=== PATIENT | male | born 1960 | race Caucasian/White ===

== ENCOUNTER 2018-11-11 14:49 | Emergency (ER) | payer OTHER, SELFPAY ==
[2018-11-11 14:57] VITALS: BP 113/79; PULSE 61; RESP 14; TEMP 36.8; O2SAT 98
--- NOTE | 2018-11-11 15:20 | DI.RAD_ITS ---
SYMPTOM/DIAGNOSIS: S/P CRUSH INJURY RT LITTLE FINGER RIGHT LITTLE FINGER: Three views of the right little finger were obtained. No priors for comparison No acute fracture or dislocation is present. At the distal interphalangeal joint of the right little finger there is marked joint space narrowing and periarticular spurring consistent with osteoarthritis. There does appear to be soft tissue swelling of the right little finger. IMPRESSION: No acute fracture or dislocation.
--- NOTE | 2018-11-11 15:21 | ED.GENADUL_ITS ---
Discharge Plan Disposition Patient Disposition: HOME Condition: Stable Discharge Details Chief Complaint: Orthopedic Clinical Impression: Finger laceration, Crush injury to finger Primary Care Provider: Ansley Mir V ED Provider: Sherry Crespo Home Meds and New Rx's Prescriptions: New cephalexin [Keflex] 500 mg capsule 500 mg PO Q6H 7 Days Qty: 28 RF: 0 Continued multivitamin with minerals [Multiple Vitamin-Minerals] Tablet 1 tab PO DAILY RF: 0 Discharge Instructions Instructions: Finger Laceration (ED), Crush Injury (ED) Additional Instructions: Take the antibiotics until finished. Alternate Tylenol and Motrin as needed and directed for pain. Follow-up with orthopedics tomorrow to schedule an appointment for evaluation. Return immediately to the emergency department if you develop any worsening or new concerning symptoms such as fever, increased pain, redness or swelling. Referrals: Shreyas Miranda MD [ [facility] STAFF PHYSICIAN] - Discharge Data Discharge Physician: Sherry Crespo Medical Decision Making 58-year-old male who presents with right distal fifth finger crush injury after caught on a mower deck and tanya. There is moderate distal right fifth finger edema and ecchymosis with a 2 mm laceration on medial aspect. Nail is intact. There is minimal ecchymosis below the nail but does not appear consistent with a significant subungual hematoma and does not appear appropriate for drainage at this time. No deformities noted. Neurovascularly intact. Patient took Motrin prior to arrival. Tetanus up-to-date. Right fifth finger x-ray notes significant degenerative changes but no dislocation or fracture. On the lateral view of the x-ray, it appeared that there was a questionable subluxation but this was read as negative. Will treat with antibiotics if there is a questionable bony injury in setting of laceration. Dose of Keflex given here and 2 doses for home as well as prescription. Wounds were irrigated, applied a topical antibiotic ointment and fingers but was p laced. Patient placed on orthopedic follow-up list to review x-rays in the morning. Patient was instructed to follow-up with orthopedics and to return here with any concerns. Medical Records Medical records reviewed: Yes I reviewed the patient's medical records. Imaging Data Radiologic Study: Radiologist's impression: Study performed is of the right little finger. 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 TECHNIQUE: Imaging protocol: XR Left fingers. Views: Minimum 2 views. COMPARISON: No relevant prior studies available. FINDINGS: Marked degenerative arthritis of the distal interphalangeal joint. No evidence of acute fracture. No radiopaque foreign bodies. IMPRESSION: No evidence of acute bony abnormality. HPI General Mode of arrival: ambulatory . Date/Time Provider Initiated Documentation: 11/11/18 15:18 . Limitations to Documentation: no limitations . Information obtained by: patient . HPI Narrative: Patient is a 58-year-old male who presents with right fifth finger injury after crushed on a mower deck and tanya prior to arrival. Tetanus up-to-date. Denies any other injuries. Related Data Home Medications Medication Instructions Recorded Confirmed cephalexin [Keflex] 500 mg PO Q6H 7 Days #28 cap 11/11/18 multivitamin with minerals 1 tab PO DAILY 11/11/18 11/11/18 [Multiple Vitamin-Minerals] Previous Rx's Medication Instructions Recorded cephalexin [Keflex] 500 mg PO Q6H 7 Days #28 cap 11/11/18 Allergies Allergy/AdvReac Type Severity Reaction Status Date / Time sulfur dioxide AdvReac Intermediate Unverified 11/11/18 15:01 General Stated Complaint: Orthopedic MAURISIO: 3 Review of Systems Review of Systems All systems reviewed & are unremarkable except as noted in HPI and below PFSH Social History Smoking/Tobacco Use Status: Never Drug use: Never Do you feel safe at home: Yes Do you feel safe in your relationship?: Yes Exam Const General: cooperative, healthy appearing and no acute distress HENMT Head: normal to inspection Mouth: oral mucosae normal Eyes General: appearance normal, both eyes and all related structures Neck Neck: normal visual inspection Resp Effort & Inspection: normal respiratory effort and able to speak in complete sentences Cardio Rate: regular rate Skin General skin exam: no rashes or lesions noted Neuro General: alert, awake and oriented x3 Motor: muscle tone normal throughout Extrem Other: Right 5th finger: Distal moderate edema and ecchymosis. There is a 2 mm laceration noted on the distal medial aspect. Normal range of motion at PIP joint. Limited range of motion at DIP joint which may be due to edema. No obvious deformity noted. Minimal ecchymosis noted under nail but does not appear consistent with a significant subungual hematoma. Psych Appearance: grossly normal Affect: normal affect Course Vital Signs Temperature 98.2 F 11/11/18 14:57 Pulse 61 11/11/18 14:57 Respiratory Rate 14 11/11/18 14:57 Blood Pressure 113/79 11/11/18 14:57 Pulse Oximetry 98 11/11/18 14:57 Temperature 98.2 F 11/11/18 14:57 Temperature Source Temporal Artery Scan 11/11/18 14:57 Pulse 61 11/11/18 14:57 Respiratory Rate 14 11/11/18 14:57 Respiratory Effort Non-Labored 11/11/18 14:59 Blood Pressure 113/79 11/11/18 14:57 Blood Pressure Position Sitting 11/11/18 14:57 Pulse Oximetry 98 11/11/18 14:57 Oxygen Delivery Method Room Air 11/11/18 14:57 Oxygen Flow Rate 0 11/11/18 14:57 Pain Level 2 11/11/18 14:57
--- NOTE | 2018-11-11 15:58 | DI.VRAD_ITS ---
Addendum created by Bradly Obregon MD on 11/11/2018 4:07:11 PM EDT Study performed is of the right little finger. 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 TECHNIQUE: Imaging protocol: XR Left fingers. Views: Minimum 2 views. COMPARISON: No relevant prior studies available. FINDINGS: Marked degenerative arthritis of the distal interphalangeal joint. No evidence of acute fracture. No radiopaque foreign bodies. IMPRESSION: No evidence of acute bony abnormality. Dictated and Authenticated by: Bradly Obregon MD. Ordering:ASHTYN Powell MD
[2018-11-11] MEDS: Cephalexin 500 MG CAP PO (16:20)
[2018-11-11 17:00] VITALS: BP 113/79; PULSE 61; RESP 14; O2SAT 98
[2018-11-11] MEDS: Cephalexin 500 MG CAP 1000 MG PO (17:00)
== END 2018-11-11 17:00 | disposition home or self-care (01) ==
PROVIDERS: Emergency Provider Physician Assistant; PCP Family Medicine
DX: S67.196A Crushing injury of right little finger, initial encounter (principal); S65.516A Laceration of blood vessel of right little finger, initial encounter; W28.XXXA Contact with powered lawn mower, initial encounter
CPT/HCPCS: 99283; 73140

== ENCOUNTER 2019-05-10 09:35 | Outpatient (REF) | payer OTHER, SELFPAY ==
[2019-05-10 19:46] LABS: Anion Gap 10.1 mmol/L (3-11); BUN 16 mg/dL (7-18); CO2 26.9 mmol/L (21.0-32.0); CREATININE 1.03 mg/dL (0.70-1.30); Calcium 9.4 mg/dL (8.5-10.1); Calculated LDL 166 mg/dL; Chloride 106 mmol/L (98-107); Cholesterol 255 mg/dL (<200); Glucose 97 mg/dL (74-106); HDL Cholesterol 61 mg/dL (40-60); Potassium 4.3 mmol/L (3.5-5.1); Sodium 143 mmol/L (136-145); Triglyceride 140 mg/dL (<150)
[2019-05-13 12:54] LABS: PSA, Screening 0.7 ng/mL (0.0-3.5)
== END 2019-05-10 09:55 ==
LOC: NCHCN 09:35
PROVIDERS: PCP Family Medicine; Visit Provider Family Medicine
DX: Z00.00 Encounter for general adult medical examination without abnormal findings (principal); Z13.220 Encounter for screening for lipoid disorders; Z13.228 Encounter for screening for other metabolic disorders; Z12.5 Encounter for screening for malignant neoplasm of prostate
CPT/HCPCS: 80048; 80061; 84153

== ENCOUNTER 2019-06-27 15:21 | Outpatient (REF) | payer OTHER, SELFPAY ==
--- NOTE | 2019-06-27 14:00 | SKI_PTH ---
PATIENT: Julito Yost LOC: [facility]#:[id number] AGE/SX: 59/M ROOM: RE06/27/[address]: Asnley Mir V : 1960 BED: DIS: 06/27/2019 SPEC #: [id number] RECD: 06/28/19 12:16 STATUS: ADRIANA JIMENEZ #: [id number] JAMES: 06/27/19 14:[address]: Ansley Mir V DEPT: Surgical Specimen RECD BY: Tram Keyes Tissues: 1 - SKIN BIOPSY(SHAVE/PUNCH) Procedures: SKIN LEVEL 4 Comments: [id number]
== END 2019-06-27 15:41 ==
LOC: NCHCN 15:21
PROVIDERS: PCP Family Medicine; Visit Provider Family Medicine
DX: L30.8 Other specified dermatitis (principal)
CPT/HCPCS: 88305

== ENCOUNTER 2019-10-21 00:29 | Outpatient (CLI) | payer OTHER, SELFPAY ==
--- NOTE | 2019-10-21 10:30 | DI.NM_ITS ---
APPROVED REPORT Exam: Exercise Treadmill Patient Location: Out-Patient Room/Bed: Stress Nurse: Marianna Tesfaye RN BMI: 26.63 Baseline Rhythm: Sinus Bradycardia Indications: Patient reports for the past couple of weeks he has been experiencing upper mid chest/th roat ???tightness??? and ???breathlessness??? (choking feeling) ???especially on long runs???. Zabrina adan is an avid runner. Medical History Medical History: GERD Cardiac Medications: Rosuvastatin Allergies: Sulfa Medications Cardiac Risk Factors: Hyperlipidemia Previous Cardiac Procedures: None Pretest Chest Pain Characteristics: None Exercise History: Physically active Physical Disabilities: None Lung Sounds: Clear to auscultation Heart Sounds: Regular Stress Test Details Test: Exercise stress testing was performed using a Jayjay protocol. Nuclear Acquisition: Rest Tc-99m/Stress Tc-99m 1 day Rest Isotope: Tc-99m Sestamibi. Dose: 12.0 Date: 10/21/2019 Injection Time: 0920 Stress Isotope: Tc-99m Sestamibi. Dose: 37.0 Date: 10/21/2019 Injection Time: 1135 HR Resting HR Supine: 58 bpm Max Heart Rate (APMHR): 162 bpm Resting HR Standin bpm Target HR (85% APMHR): 137 bpm Max HR Achieved: 182 bpm % of APMHR: 112 HR response to stress: Normal HR response to stress BP Resting BP Supine: 118/62 mmHg Resting BP Standin/60 mmHg Max BP: 148/66 mmHg BP response to stress: Normal blood pressure response to stress. ECG Resting ECG: Sinus Bradycardia Stress ECG: Sinus Tachycardia ST Change: Normal Arrhythmia: None Recovery ECG: Sinus Rhythm Recovery ST Change: Normal Recovery Arrhythmia: None Clinical Reason for Termination: Fatigue Stress Symptoms: None Exercise duration: 15 min0 sec Highest Stage Reached: Stage 6: 5.5 mph at 20% grade. Exercise capacity: 14.87 METs Functional Capacity: Above average capacity Stress ECG Conclusion 1. Patient exercised for 14 minutes (15 minutes). The patient reached 112% of maximal predicted hear t rate. Rate-pressure product was 24,000. 2. Patient no symptoms suggestive of ischemia. 3. There was no evidence of ischemia on the ECG portion of the exam. Stress Test Summary STAGE Time (mins) Speed (mph) Grade (%) HR BP SYMPTOMS METS Supine 58 118/62 Standing 59 114/60 1 3 1.7 10 105 120/60 4.6 2 6 2.5 12 120 122/58 7 3 9 3.4 14 140 134/60 10.2 1 min recovery 162 148/66 3 min recovery 110 136/62 6 min recovery 102 128/60 9 min recovery 101 122/64 Note: Unable to take blood pressure at stage 4 due to treadmill noise. MPI Conclusion The ejection fraction was 63% with stress. There were no wall motion abnormalities. There is no evidence of ischemia on the imaging portion of the exam. This represents a normal SPECT stress test. Radiologist Interpretation Radiologist Interpretation by: Brandyn Ashby MD Interpretation Date/Time: 10/22/2019 08:34:12
== END 2019-10-21 00:49 ==
PROVIDERS: PCP Family Medicine; Visit Provider Family Medicine
DX: R07.89 Other chest pain (principal); E78.5 Hyperlipidemia, unspecified; K21.9 Gastro-esophageal reflux disease without esophagitis
CPT/HCPCS: 78452; 93017

== ENCOUNTER 2021-06-07 17:01 | Emergency (ER) | payer OTHER, SELFPAY ==
[2021-06-07] VITALS (20 sets, daily range): BP systolic 114–156; BP diastolic 77–89; PULSE 49–75; RESP 11–21; TEMP 35.4; O2SAT 92–100
--- NOTE | 2021-06-07 17:00 | RT.EKG_ITS ---
APPROVED REPORT Exam: Resting ECG Reason for Exam: CHEST PAIN Patient Location: E HR:64 bpm ECG Measurements Heart Rate 64 AXIS TX 171 P 63 QRSd 89 QRS 22 QT 395 T 43 QTc 409 Conclusion Sinus rhythm...normal P axis, V-rate 60- 99 Probable left atrial enlargement...P >50mS, <-0.10mV V1. Sinus. No STEMI. I have reviewed and interpreted ECG and agree with software generated interpretation.
--- NOTE | 2021-06-07 17:00 | DI.RAD_ITS ---
Exam(s) XR CHEST 2V PA LATERAL EXAM: XR CHEST 2V PA LATERAL CLINICAL HISTORY: chest pain, r/o acute disease TECHNIQUE: 2D digital imaging was performed of the chest. Two images were obtained. PA and lateral views were obtained. COMPARISON: No exams were available for comparison FINDINGS: MEDIASTINUM: Normal. HEART: Normal. PULMONARY VASCULATURE: Normal. LUNGS: Left infrahilar opacity. PLEURAL SPACE: No pleural effusion or pneumothorax. BONE:Within normal limits for the patient's age. OTHER FINDINGS:Normal. IMPRESSION: Left infrahilar opacities suspicious for pneumonia. Please correlate clinically. DATA REPOSITORY: RADIATION DOSE DELIVERED:
--- NOTE | 2021-06-07 17:13 | ED.GENADUL_ITS ---
Discharge Plan Disposition Patient Disposition: HOME Condition: Stable Discharge Details Clinical Impression: Chest pain, Palpitations Primary Care Provider: Ansley Mir V ED Provider: Sherry Crespo Home Meds and New Rx's Prescriptions: New sucralfate [Carafate] 1 gram tablet 1 gm PO QACHS Qty: 14 RF: 0 Continued Multiple Vitamin-Minerals Tablet 1 tab PO DAILY RF: 0 rosuvastatin 20 mg tablet 20 mg PO DAILY RF: 0 turmeric 400 mg Capsule 400 mg PO DAILY RF: 0 Discharge Instructions Instructions: Chest Pain (ED), Heart Palpitations (ED) Additional Instructions: Your lab work, EKGs and imaging today is reassuring and shows no evidence of acute concerning findings. Drink plenty of fluids and get plenty of rest. Continue your Nexium as directed. A prescription for Carafate has been sent electronically to your pharmacy. Call your primary care doctor today to schedule a follow-up appointment for reevaluation and for referral for outpatient stress test or registered nurse cardiac telemetry if your symptoms persist or worsen. Return immediately to the emergency department if you develop any worsening or new concerning symptoms. Discharge Data Discharge Date/Time-TO BE ENTERED AT DEPARTURE: 06/07/21 20:25 Discharge Physician: Sherry Crespo Medical Decision Making 61-year-old male with a history of GERD and hyperlipidemia presents for 2 episodes of substernal chest pressure today. EKG notes a rate of 64, sinus, no STEMI nondiagnostic. Blood pressure hypertensive but remainder vitals within normal limits. Pain is improving during my evaluation. Does not appear significantly suspicious for ACS, but considering age and risk factors, will obtain cardiac work-up, chest x-ray. History and presentation does not appear with PE or dissection. Patient would like to try GI cocktail, Pepcid and Carafate. Labs and imaging reviewed. Normal white blood cell count. Normal electrolytes. Troponin negative. Lipase within normal limits. CXR notes: IMPRESSION: Acute interstitial and airspace disease in the left lung base with associated acute interstitial disease in the right lung base. Developing atypical pneumonia to be entertained in the appropriate clinical setting. Results d/w pt -- he denies any fever or cough so presentation not c/w pneumonia. Patient states his chest pain is completely resolved. He feels that his symptoms are most likely due to the food he ate today. Pt agreeable to stay for a repeat troponin but does not want to wait for a 3 hour troponin. He is willing to stay for a 2 hour repeat troponin. Repeat troponin negative. Repeat EKG unchanged. Bedside echo done and notes normal dynamic wall motion and no pericardial effusion. Pt is requesting to go home. Heart score 2. Advised to f/u with pcp for re- evaluation and for referral for outpatient stress test or registered nurse cardiac telemetry if symptoms persist or worsen. Prescription for Carafate sent electronically to his pharmacy. Usual and customary return precautions given prior to discharge. Medical Records Medical records reviewed: Yes I reviewed the patient's medical records. Imaging Data Radiologic Study: Radiologist's impression: XR Chest Exam date and time: 06/07/2021 5:13 PM Age: 61 years old Clinical indication: Other: Not specified; Patient HX: Chest pain; Additional info: R/O acute disease TECHNIQUE: Imaging protocol: XR of the chest. Views: 2 views. COMPARISON: No relevant prior studies available. FINDINGS: Airway: Patent Lungs: Subtle bilateral infrahilar ground-glass and streak like opacifications. Patchy airspace opacities in the left lung base. Remainder of the lungs are clear. Pleural spaces: Unremarkable. No pleural effusion. No pneumothorax. Heart/Mediastinum: Unremarkable. No cardiomegaly. Bones/joints: No acute skeletal abnormality or aggressive osseous lesion. IMPRESSION: Acute interstitial and airspace disease in the left lung base with associated acute interstitial disease in the right lung base. Developing atypical pneumonia to be entertained in the appropriate clinical setting. Lab Data Lab results reviewed: Yes I reviewed the patient's lab results. Labs: Laboratory Tests Range/Units 06/07/21 06/07/21 06/07/21 17:00 17:00 18:55 WBC (4.4-10.8) 10^3/uL 6.38 RBC (4.36-5.78) 10^6/uL 4.93 Hgb (13.5-17.5) g/dL 14.0 Hct (40.0-50.0) % 44.3 MCV (80-95) fL 89.9 MCH (27.0-33.0) pg 28.4 MCHC (32.0-36.0) % 31.6 L RDW (11.8-14.1) % 13.2 Plt Count (130-400) 10^3/uL 227 MPV (8.0-11.0) fL 10.2 Immature Gran % 0.5 Neutrophils % 42.1 Lymphocytes % 41.4 Monocytes % 10.8 Eosinophils % 4.4 Basophils % 0.8 Nucleated RBC % % 0 Absolute Neutrophils (1.2-6.7) 10^3/uL 2.69 Absolute Lymphocytes (1.2-3.4) 10^3/uL 2.64 Absolute Monocytes (0.1-0.8) 10^3/uL 0.69 Absolute Eosinophils (0.0-0.7) 10^3/uL 0.28 Absolute Basophils (0.0-0.2) 10^3/uL 0.05 Sodium (136-145) mmol/L 139 Potassium (3.5-5.1) mmol/L 3.7 Chloride (98-107) mmol/L 102 Carbon Dioxide (21.0-32.0) mmol/L 28.8 Anion Gap (3-11) mmol/L 8.2 BUN (7-18) mg/dL 17 Creatinine (0.70-1.30) mg/dL 1.1 Estimated GFR/1.73 m2 (mL/min/1.73m2) >= 60.00 Glucose (74-106) mg/dL 110 H Calcium (8.5-10.1) mg/dL 9.1 Magnesium (1.8-2.4) mg/dL 2.2 Total Bilirubin (0.2-1.0) mg/dL 0.3 AST (15-37) U/L 17 ALT (16-63) U/L 33 Alkaline Phosphatase (46-116) U/L 90 Troponin I (<or=60) ng/L < 50 < 50 Total Protein (6.4-8.2) g/dL 7.5 Albumin (3.4-5.0) g/dL 4.2 Lipase (73-393) U/L Range/Units 06/07/21 18:55 WBC (4.4-10.8) 10^3/uL RBC (4.36-5.78) 10^6/uL Hgb (13.5-17.5) g/dL Hct (40.0-50.0) % MCV (80-95) fL MCH (27.0-33.0) pg MCHC (32.0-36.0) % RDW (11.8-14.1) % Plt Count (130-400) 10^3/uL MPV (8.0-11.0) fL Immature Gran % Neutrophils % Lymphocytes % Monocytes % Eosinophils % Basophils % Nucleated RBC % % Absolute Neutrophils (1.2-6.7) 10^3/uL Absolute Lymphocytes (1.2-3.4) 10^3/uL Absolute Monocytes (0.1-0.8) 10^3/uL Absolute Eosinophils (0.0-0.7) 10^3/uL Absolute Basophils (0.0-0.2) 10^3/uL Sodium (136-145) mmol/L Potassium (3.5-5.1) mmol/L Chloride (98-107) mmol/L Carbon Dioxide (21.0-32.0) mmol/L Anion Gap (3-11) mmol/L BUN (7-18) mg/dL Creatinine (0.70-1.30) mg/dL Estimated GFR/1.73 m2 (mL/min/1.73m2) Glucose (74-106) mg/dL Calcium (8.5-10.1) mg/dL Magnesium (1.8-2.4) mg/dL Total Bilirubin (0.2-1.0) mg/dL AST (15-37) U/L ALT (16-63) U/L Alkaline Phosphatase (46-116) U/L Troponin I (<or=60) ng/L Total Protein (6.4-8.2) g/dL Albumin (3.4-5.0) g/dL Lipase (73-393) U/L 131 ECG Data Attestation: I personally reviewed and interpreted this ECG (s) as follows: Interpretation: #1 -- Rate of 64, sinus, no acute ST elevation or depression. ME 171. QTc 409. #2 -- Rate of 50, sinus, no acute ST elevation or depression. ME 176. QTc 385. HPI General Mode of arrival: ambulatory . Date/Time Provider Initiated Documentation: 06/07/21 17:11 . Limitations to Documentation: no limitations . Information obtained by: patient . HPI Narrative: Patient is a 61-year-old male with a history of GERD and hyperlipidemia who presents with intermittent chest pain today. 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 He states it lasted a minute and then resolved. 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 He states the pain is occasionally radiating behind his ears. He states the pain was worse earlier and is currently 1/10. He admits to occasional shortness of breath and dizziness but denies any nausea or vomiting. He denies any recent injury or illness. He has not taken any medication for symptoms today. He thought his symptoms were due to GERD because he ate cabbage rolls today but wanted to be checked out as he feels more water brash and burning with his GERD as opposed to chest pressure. He does also admit to recent stress. He initially stated that the pain was radiating to his neck but he states this is now improved. Related Data Home Medications Medication Instructions Recorded Confirmed Multiple Vitamin-Minerals 1 tab PO DAILY 11/11/18 06/07/21 rosuvastatin 20 mg PO DAILY 06/07/21 06/07/21 sucralfate [Carafate] 1 gm PO QACHS #14 tab 06/07/21 turmeric 400 mg PO DAILY 06/07/21 06/07/21 Previous Rx's Medication Instructions Recorded sucralfate [Carafate] 1 gm PO QACHS #14 tab 06/07/21 Allergies Allergy/AdvReac Type Severity Reaction Status Date / Time Sulfa (Sulfonamide Allergy Hives Unverified 06/07/21 17:07 Antibiotics) sulfur dioxide AdvReac Intermediate Unverified 11/11/18 15:01 General Stated Complaint: Chest Pain MAURISIO: 2 Review of Systems All systems reviewed & are unremarkable except as noted in HPI and below Constitutional Constitutional: Reports as per HPI, Denies chills and Denies fever(s) Eyes Eyes: Denies blurry vision ENT Ears, Nose, Mouth, and Throat: Denies dizziness, Denies sore throat and Denies throat swelling Cardiovascular Cardiovascular: Reports chest pain, Reports palpitations and Denies dyspnea Respiratory Respiratory: Denies cough and Denies dyspnea Gastrointestinal Gastrointestinal: Denies abdominal pain, Denies diarrhea and Denies vomiting Genitourinary Genitourinary: Denies hematuria and Denies dysuria Musculoskeletal Musculoskeletal: Denies back pain and Denies numbness Integumentary/Breasts Skin/Breast: Denies lesions and Denies rash Neurologic Neurologic: Denies dizziness, Denies localized weakness and Denies numbness Endocrine Endocrine: Reports palpitations Allergic/Immunologic Allergic/Immunologic: Denies throat swelling PFSH All Active Problems (Updated 06/07/21 @ 20:13 by Sherry Crespo DO) Chest pain (Acute) Palpitations (Acute) Encounter for screening for other viral diseases (Acute) Medical History (Updated 06/07/21 @ 20:13 by Sherry Crespo DO) GERD (gastroesophageal reflux disease) Hx of hyperlipidemia Surgical History (Updated 06/07/21 @ 17:14 by Sherry Crespo DO) History of hernia repair History of tonsillectomy Social History Smoking/Tobacco Use Status: Never Smoking risk assessment performed?: Yes Drug use: Never Do you feel safe at home: Yes Do you feel safe in your relationship?: Yes Exam Const General: cooperative, healthy appearing and no acute distress HENMT Head: normal to inspection Face and sinus: normal facial exam Eyes General: appearance normal, both eyes and all related structures EOM: EOM intact bilaterally Neck Neck: normal visual inspection and No submandibular swelling Lymphatic: no lymphadenopathy noted Chest Chest: normal inspection of the chest and no tenderness Resp Effort & Inspection: normal respiratory effort and able to speak in complete sentences Auscultation: clear to auscultation bilaterally Cardio Rate: regular rate Rhythm: regular rhythm GI Inspection: normal to inspection Palpation: soft, not firm, not rigid and nontender Auscultation: normal bowel sounds Skin General skin exam: no rashes or lesions noted Neuro General: patient alert, patient awake and patient oriented x3 Cognition: normal cognition Speech: speech normal Motor: muscle tone normal throughout Sensory Exam: no sensory deficits noted Extrem General: normal to inspection, full ROM, capillary refill normal, no calf tenderness bilaterally and no edema Psych Appearance: grossly normal Mental Status: mental status grossly normal Speech and Movement: speech and movement normal Affect: normal affect Course Vital Signs Vital signs: Vital Signs Temperature 95.7 F L 06/07/21 17:03 Pulse 70 06/07/21 17:03 Respiratory Rate 11 L 06/07/21 17:03 Blood Pressure 156/81 H 06/07/21 17:03 Pulse Oximetry 99 06/07/21 17:03 Temperature 95.7 F L 06/07/21 17:03 Pulse 70 06/07/21 17:03 Respiratory Rate 11 L 06/07/21 17:03 Blood Pressure 156/81 H 06/07/21 17:03 Blood Pressure Position Sitting 06/07/21 17:03 Pulse Oximetry 99 06/07/21 17:03 Oxygen Delivery Method Room Air 06/07/21 17:03 Oxygen Flow Rate 0 06/07/21 17:03 Pain Level 4 06/07/21 17:03
[2021-06-07 17:21] LABS: Abs Immature Grans 0.03 10^3/uL (0.0-0.06); Absolute Basophil Count 0.05 10^3/uL (0.0-0.2); Absolute Eosinophil Count 0.28 10^3/uL (0.0-0.7); Absolute Lymphocyte Count 2.64 10^3/uL (1.2-3.4); Absolute Monocyte Count 0.69 10^3/uL (0.1-0.8); Absolute Neutrophil Count 2.69 10^3/uL (1.2-6.7); Basophils % 0.8; Eosinophils % 4.4; HCT 44.3 % (40.0-50.0); Immature Grans % 0.5; Lymphocytes % 41.4; MCH 28.4 pg (27.0-33.0); MCHC 31.6 % (32.0-36.0); MCV 89.9 fL (80-95); MPV 10.2 fL (8.0-11.0); Monocytes % 10.8; Neutrophils % 42.1; Nucleated RBC 0 %; Platelet Count 227 10^3/uL (130-400); RBC 4.93 10^6/uL (4.36-5.78); RDW 13.2 % (11.8-14.1); RDW-SD 43.8 fL; WBC 6.38 10^3/uL (4.4-10.8)
[2021-06-07] MEDS: Sucralfate 1 GM TAB PO (17:23)
[2021-06-07] MEDS: Normal Saline 500 ML IV (17:27)
[2021-06-07] MEDS: FAMOTIDINE 20 MG/50 ML BAG 200 MG IVPB (17:27)
[2021-06-07 17:37] LABS: ALT 33 U/L (16-63); AST 17 U/L (15-37); Albumin 4.2 g/dL (3.4-5.0); Alkaline Phosphatase 90 U/L (46-116); Anion Gap 8.2 mmol/L (3-11); BUN 17 mg/dL (7-18); Bilirubin, Total 0.3 mg/dL (0.2-1.0); CO2 28.8 mmol/L (21.0-32.0); CREATININE 1.1 mg/dL (0.70-1.30); Calcium 9.1 mg/dL (8.5-10.1); Chloride 102 mmol/L (98-107); Glucose 110 mg/dL (74-106); Magnesium 2.2 mg/dL (1.8-2.4); Potassium 3.7 mmol/L (3.5-5.1); Sodium 139 mmol/L (136-145); Total Protein 7.5 g/dL (6.4-8.2); Troponin I < 50 ng/L (<or=60)
--- NOTE | 2021-06-07 17:45 | RT.EKG_ITS ---
APPROVED REPORT Exam: Resting ECG Reason for Exam: chest pain Patient Location: E HR:50 bpm ECG Measurements Heart Rate 50 AXIS TX 176 P 62 QRSd 91 QRS 30 QT 423 T 39 QTc 385 Conclusion Sinus bradycardia...rate< 60 Low voltage, extremity leads...all extremity leads <0.5mV. Sinus. No STEMI. I have reviewed and interpreted ECG and agree with software generated interpretation.
--- NOTE | 2021-06-07 18:15 | DI.VRAD_ITS ---
PROCEDURE INFORMATION: Exam: XR Chest Exam date and time: 06/07/2021 5:13 PM Age: 61 years old Clinical indication: Other: Not specified; Patient HX: Chest pain; Additional info: R/O acute disease TECHNIQUE: Imaging protocol: XR of the chest. Views: 2 views. COMPARISON: No relevant prior studies available. FINDINGS: Airway: Patent Lungs: Subtle bilateral infrahilar ground-glass and streak like opacifications. Patchy airspace opacities in the left lung base. Remainder of the lungs are clear. Pleural spaces: Unremarkable. No pleural effusion. No pneumothorax. Heart/Mediastinum: Unremarkable. No cardiomegaly. Bones/joints: No acute skeletal abnormality or aggressive osseous lesion. IMPRESSION: Acute interstitial and airspace disease in the left lung base with associated acute interstitial disease in the right lung base. Developing atypical pneumonia to be entertained in the appropriate clinical setting. Dictated and Authenticated by: Nixon Garg MD. Ordering:ASHTYN Powell MD
[2021-06-07 19:17] LABS: Troponin I < 50 ng/L (<or=60)
[2021-06-07 20:47] LABS: Lipase 131 U/L (73-393)
== END 2021-06-07 20:25 | disposition home or self-care (01) ==
LOC: ER 20:26
PROVIDERS: Emergency Provider Physician Assistant; PCP Family Medicine
DX: R07.9 Chest pain, unspecified (principal); R00.2 Palpitations; R07.89 Other chest pain; I10 Essential (primary) hypertension
CPT/HCPCS: 36415; 80053; 83690; 93005; 96361; 96374; 99284; 71046; 83735; 84484; 85025; 93010

== ENCOUNTER 2021-07-22 12:55 | Outpatient (CLI) | payer OTHER, SELFPAY ==
[2021-07-22 09:53] LABS: Calculated LDL 98 mg/dL (<100); Cholesterol 184 mg/dL (<200); HDL Cholesterol 61 mg/dL (40-60); TSH (W/Ref FT4) 1.58 uIU/mL (0.36-3.74); Triglyceride 126 mg/dL (<150)
== END 2021-07-22 12:56 | disposition home or self-care (01) ==
PROVIDERS: PCP Family Medicine; Visit Provider Family Medicine
DX: R00.2 Palpitations (principal); R07.89 Other chest pain
CPT/HCPCS: 36415; 80061; 84443

== ENCOUNTER 2022-04-02 16:54 | Emergency (ER) | payer OTHER, SELFPAY ==
[2022-04-02 17:02] VITALS: BP 127/76; PULSE 70; RESP 17; TEMP 36.9; O2SAT 98
--- NOTE | 2022-04-02 17:14 | ED.GENADUL_ITS ---
Discharge Plan Disposition Patient Disposition: HOME Condition: Stable Discharge Details Clinical Impression: Abrasion, Puncture wound Primary Care Provider: Ansley Mir V ED Provider: Florentino James Home Meds and New Rx's Prescriptions: New cephalexin 500 mg capsule 500 mg PO QID 5 Days Qty: 20 0RF No Action Multiple Vitamin-Minerals Tablet 1 tab PO DAILY rosuvastatin 20 mg tablet 20 mg PO DAILY turmeric 400 mg Capsule 400 mg PO DAILY sucralfate [Carafate] 1 gram tablet 1 gm PO QACHS Qty: 14 0RF Discharge Instructions Instructions: Puncture Wound (ED), Abrasion (ED) Additional Instructions: Please return for any signs of infection such as warmth redness purulent drainage fevers chills or other abnormal symptoms. Medical Decision Making 61-year-old male presents after sustaining superficial abrasion to right popliteal fossa from metal liliana wire, hemostatic, patient cleaned wound extensively before arrival, forage motion ambulatory without assistance, no active bleeding, no foreign bodies appreciated; no evidence of active infection. Hemodynamically stable. Will boost tetanus vaccine. We will give prescription to hold at home in case patient develops any signs of infection. Home care instructions and return precautions given. HPI General Date/Time Provider Initiated Documentation: 04/02/22 16:58 . HPI Narrative: 61-year-old male presents after sustaining superficial abrasion and puncture w ound to right lower extremity lateral aspect of popliteal fossa while in the ar[place] accidentally got entangled in an old liliana wire. Patient cleaned wound extensively. Hemostatic. Unknown when last tetanus shot was given. Related Data Home Medications Medication Instructions Recorded Confirmed multivitamin with minerals 1 tab PO DAILY 11/11/18 06/07/21 (Multiple Vitamin-Minerals tablet) rosuvastatin 20 mg tablet 20 mg PO DAILY 06/07/21 06/07/21 sucralfate 1 gram tablet (Carafate) 1 gm PO QACHS #14 tabs 06/07/21 turmeric 400 mg capsule 400 mg PO DAILY 06/07/21 06/07/21 cephalexin 500 mg capsule 500 mg PO QID 5 days #20 caps 04/02/22 Previous Rx's Medication Instructions Recorded sucralfate 1 gram tablet (Carafate) 1 gm PO QACHS #14 tabs 06/07/21 cephalexin 500 mg capsule 500 mg PO QID 5 days #20 caps 04/02/22 Allergies Allergy/AdvReac Type Severity Reaction Status Date / Time Sulfa (Sulfonamide Allergy Hives Unverified 06/07/21 17:07 Antibiotics) sulfur dioxide AdvReac Intermediate Unverified 11/11/18 15:01 General Stated Complaint: Laceration MAURISIO: 4 Review of Systems Narrative: Review of Systems Constitutional: negative Eyes: negative ENT: negative Cardiovascular: negative Respiratory: negative Gastrointestinal: negative : negative Musculoskeletal: negative Skin: Abrasion, puncture wound Neurologic: negative Psych: negative PFSH All Active Problems (Updated 04/02/22 @ 17:21 by Florentino James MD) Abrasion (Acute) Puncture wound (Acute) Encounter for screening for other viral diseases (Acute) Medical History (Updated 04/02/22 @ 17:21 by Florentino James MD) GERD (gastroesophageal reflux disease) Hx of hyperlipidemia Surgical History (Updated 06/07/21 @ 17:14 by Sherry Crespo DO) History of hernia repair History of tonsillectomy Social History Smoking/Tobacco Use Status: Never Smoking risk assessment performed?: Yes Drug use: Never Do you feel safe at home: Yes Do you feel safe in your relationship?: Yes Exam Narrative Exam Narrative: Physical Examination General: alert, awake, cooperative, resting comfortably, no acute distress HEENT: normocephalic, atraumatic; PERRL, EOM intact, conjunctiva normal Neck: supple, trachea midline; full ROM Skin:6 cm superficial abrasion with 2 punctate superficial, puncture wounds to the lateral aspect of right popliteal fossa hemostatic no foreign body no surrounding induration or erythema Neuro: AAOx3, normal speech, moving all extremities; ambulatory without assistance Extremities: See skin exam; full range of motion, warm well perfused extremity, no active bleeding or foreign bodies appreciated Course Vital Signs Vital signs: Vital Signs Temperature 36.9 C 04/02/22 17:02 Pulse 70 04/02/22 17:02 Respiratory Rate 17 04/02/22 17:02 Blood Pressure 127/76 04/02/22 17:02 Pulse Oximetry 98 04/02/22 17:02 Temperature 36.9 C 04/02/22 17:02 Temperature Source Temporal Artery Scan 04/02/22 17:02 Pulse 70 04/02/22 17:02 Respiratory Rate 17 04/02/22 17:02 Blood Pressure 127/76 10/29/22 17:02 Blood Pressure Position Sitting 04/02/22 17:02 Pulse Oximetry 98 04/02/22 17:02 Oxygen Delivery Method Room Air 04/02/22 17:02 Oxygen Flow Rate 0 04/02/22 17:02 Pain Level 0 04/02/22 17:02
== END 2022-04-02 17:26 | disposition home or self-care (01) ==
PROVIDERS: Emergency Provider Emergency Medicine; PCP Family Medicine
DX: S81.831A Puncture wound without foreign body, right lower leg, initial encounter (principal); W26.8XXA Contact with other sharp object(s), not elsewhere classified, initial encounter
CPT/HCPCS: 90471; 99284; 99283

== ENCOUNTER 2022-06-04 08:11 | Outpatient (REF) | payer OTHER, SELFPAY ==
[2022-06-04 09:13] LABS: HCT 44.7 % (40.0-50.0); HGB 14.4 g/dL (13.5-17.5); MCH 28.2 pg (27.0-33.0); MCHC 32.2 % (32.0-36.0); MCV 88 fL (80-95); MPV 10.6 fL (8.0-11.0); Platelet Count 251 10^3/uL (130-400); RDW 13.6 % (11.8-14.1); RDW-SD 43.9 fL; WBC 5.56 10^3/uL (4.4-10.8)
[2022-06-04 09:24] LABS: ALT 49 U/L (16-63); AST 30 U/L (15-37); Albumin 4.1 g/dL (3.4-5.0); Alkaline Phosphatase 91 U/L (46-116); Anion Gap 9.4 mmol/L (3-11); BUN 14 mg/dL (7-18); Bilirubin, Total 0.4 mg/dL (0.2-1.0); CO2 27.6 mmol/L (21.0-32.0); CREATININE 1.2 mg/dL (0.70-1.30); Calcium 9.2 mg/dL (8.5-10.1); Calculated LDL 119 mg/dL (<100); Chloride 102 mmol/L (98-107); Cholesterol 224 mg/dL (<200); Glucose 106 mg/dL (74-106); HDL Cholesterol 66 mg/dL (40-60); Potassium 4.5 mmol/L (3.5-5.1); Sodium 139 mmol/L (136-145); Total Protein 7.3 g/dL (6.4-8.2); Triglyceride 197 mg/dL (<150)
[2022-06-06 17:37] LABS: PSA, Screening 0.5 ng/mL (<=4.5)
[2022-06-09 00:55] LABS: Testosterone, Total 515 ng/dL (240-950)
== END 2022-06-04 08:12 | disposition home or self-care (01) ==
LOC: LBO 08:11
PROVIDERS: Nurse Practitioner Family; PCP Family Medicine; Visit Provider Family Medicine
DX: R53.83 Other fatigue (principal); E78.00 Pure hypercholesterolemia, unspecified; Z13.1 Encounter for screening for diabetes mellitus; Z12.5 Encounter for screening for malignant neoplasm of prostate
CPT/HCPCS: 36415; 80053; 80061; 84153; 84403; 85027; 83036

== ENCOUNTER 2023-02-16 14:54 | Outpatient (CLI) | payer OTHER, SELFPAY ==
[2023-02-17 09:49] LABS: Lyme Ab w Rflx to Lyme Confirm Negative (Negative)
[2023-02-18 23:22] LABS: Anaplasma phagocytophilum Negative (Negative); B. miyamotoi PCR Negative (Negative); Babesia divergens/MO-1 Negative (Negative); Babesia duncani Negative (Negative); Babesia microti Negative (Negative); Ehrlichia chaffeensis Negative (Negative); Ehrlichia ewingii/canis Negative (Negative); Ehrlichia muris eauclairensis Negative (Negative)
== END 2023-02-16 14:55 | disposition home or self-care (01) ==
LOC: LBO 14:55
PROVIDERS: PCP Family Medicine; Visit Provider Nurse Practitioner Family
DX: R53.83 Other fatigue (principal); R50.9 Fever, unspecified
CPT/HCPCS: 36415; 87798; 86618

== ENCOUNTER 2023-02-17 13:48 | Outpatient (REF) | payer OTHER, SELFPAY ==
[2023-02-17 16:59] LABS: C Diff PCR Negative (Negative)
== END 2023-02-17 13:49 | disposition home or self-care (01) ==
LOC: LBN 13:48
PROVIDERS: PCP Family Medicine; Visit Provider Nurse Practitioner Family
DX: R19.7 Diarrhea, unspecified (principal)
CPT/HCPCS: 87493

== ENCOUNTER 2023-05-25 14:03 | Outpatient (REF) | payer OTHER, SELFPAY ==
[2023-05-25 16:05] LABS: ALT 36 U/L (16-63); AST 20 U/L (15-37); Alkaline Phosphatase 86 U/L (46-116); Anion Gap 8.6 mmol/L (3-11); BUN 16 mg/dL (7-18); Bilirubin, Total 0.4 mg/dL (0.2-1.0); CO2 27.4 mmol/L (21.0-32.0); CREATININE 1.3 mg/dL (0.70-1.30); Calcium 9.2 mg/dL (8.5-10.1); Calculated LDL 80 mg/dL (<100); Chloride 104 mmol/L (98-107); Cholesterol 174 mg/dL (<200); Glucose 100 mg/dL (74-106); HDL Cholesterol 67 mg/dL (40-60); Potassium 4.7 mmol/L (3.5-5.1); Sodium 140 mmol/L (136-145); Total Protein 6.7 g/dL (6.4-8.2); Triglyceride 139 mg/dL (<150)
[2023-05-25 16:08] LABS: Hemoglobin A1C 5.6 % (<5.7)
[2023-05-25 21:52] LABS: PSA, Screening 0.6 ng/mL (<=4.5)
== END 2023-05-25 14:04 | disposition home or self-care (01) ==
LOC: NCHCN 14:03
PROVIDERS: PCP Family Medicine; Visit Provider Family Medicine
DX: Z00.00 Encounter for general adult medical examination without abnormal findings (principal); Z13.220 Encounter for screening for lipoid disorders; Z13.1 Encounter for screening for diabetes mellitus; Z12.5 Encounter for screening for malignant neoplasm of prostate
CPT/HCPCS: 80053; 80061; 84153; 83036

== ENCOUNTER 2024-06-20 13:43 | Outpatient (REF) | payer BC, SELFPAY ==
--- OUTSIDE RECORDS SUMMARY | 2024-06-20 13:57 | XMS_ITS | Data Portability ---
Author Organization [place] - [facility] Address [address] [place] [address] Care Team Providers Care Hot Mill Roller Name Role Phone COBY ENRIQUEZ Primary Care Provider [phone] J LUIS BINGHAM Sleep Medicine [facility] Dentist Assessment No assessment recorded. Plan of Treatment Reminders Order Date Submit Date Provider Last Modified By Organization Details Last Modified Time Details Appointments Annual Wellness Exam 40 2024 08:00A M COBY ENRIQUEZ Not available Not available Not available Annual Wellness Exam 40 2025 08:00A Gatito ENRIQUEZ Not available Not available Not available Lab HbA1c (hemoglob in A1c), blood 2022 023 [email or web address] [facility] (Registration ), [address] [place] [address] [place], [address], 2023 14:31:18 lipid panel, blood 2022 023 [email or web address] [facility] (Registration ), [address] [place] [address] [place], [address], 2023 14:31:18 CMP, serum or plasma 2022 023 [email or web address] [facility] (Registration ), [address] [place] [address] [place], [address], 05/25/2023 16:36:11 PSA, serum or plasma 2022 023 [email or web address] [facility] (Registration ), [address] [place] [address] [place], [address], 2023 14:31:18 Referral None recorded. Procedures None recorded. Surgeries None recorded. Imaging None recorded. Medication Orders Nexium 24HR 20 mg capsule,d elayed release 2022 023 LISET [facility], [address] [place] [address] [place], [id number], 05/25/2023 09:36:15 Patient TargetsNo targets recorded. Patient InstructionsNo instructions recorded. Reason for Referral None Reported. Results Created Date Observation Date Name Description Value Unit Range Abnormal Flag Note LastModifiedBy Organization Detail LastModifiedTime 05/25/20 23 05/25/2023 COMPR EHENS CLEO METAB OLIC PANEL calcium 9.2 mg/dL 8.5-10 .1 normal Not Available [address] [place], [address] 05/25/2023 16:07:58 05/25/20 23 05/25/2023 COMPR EHENS CLEO METAB OLIC PANEL glucose 100 mg/dL 74-106 normal Not Available Hector franklin [address] [place], [address] 05/25/2023 16:07:58 05/25/20 23 05/25/2023 COMPR EHENS CLEO METAB OLIC PANEL BUN 16 mg/dL 7-18 normal Not Available Hector franklin [address] [place], [address] 05/25/2023 16:07:58 05/25/20 23 05/25/2023 COMPR EHENS CLEO METAB OLIC PANEL creatinine 1.3 mg/dL 0.70-1 .30 normal Not Available [address] [place], [address] 05/25/2023 16:07:58 05/25/20 23 05/25/2023 COMPR EHENS CLEO METAB OLIC PANEL estimated GFR 62.50 mL/min /1.73m 2 The eGFR is calcu lated from a serum creat inine using the CKD-E PI 2020 equat ion. Other varia bles requi red for the equat ion are gende r and age; this equat ion does not inclu de a race coeff icien t. This equat ion has simil ar overa ll perfo rmanc e to previ ous equat ions excep t value s may diffe r, in parti cular , in patie nts with highe r value s of eGFR and young er-ag ed adult s. Not Available [address] [place], [address] 05/25/2023 16:07:58 05/25/20 23 05/25/2023 COMPR EHENS CLEO METAB OLIC PANEL total protein 6.7 g/dL 6.4-8. 2 normal Not Available [address] [place], [address] 05/25/2023 16:07:58 05/25/20 23 05/25/2023 COMPR EHENS CLEO METAB OLIC PANEL albumin 4.0 g/dL 3.4-5. 0 normal Not Available [address] [place], [address] 05/25/2023 16:07:58 05/25/20 23 05/25/2023 COMPR EHENS CLEO METAB OLIC PANEL bilirubin, total 0.4 mg/dL 0.2-1. 0 normal Not Available [address] [place], [address] 05/25/2023 16:07:58 05/25/20 23 05/25/2023 COMPR EHENS CLEO METAB OLIC PANEL alk phos 86 U/L 46-116 normal Not Available [address] [place], [address] 05/25/2023 16:07:58 05/25/20 23 05/25/2023 COMPR EHENS CLEO METAB OLIC PANEL sodium 140 mmol/ L 136-14 5 normal Not Available [address] [place], [address] 05/25/2023 16:07:58 05/25/20 23 05/25/2023 COMPR EHENS CLEO METAB OLIC PANEL potassium 4.7 mmol/ L 3.5-5. 1 normal Not Available [address] [place], [address] 05/25/2023 16:07:58 05/25/20 23 05/25/2023 COMPR EHENS CLEO METAB OLIC PANEL chloride 104 mmol/ L 98-107 normal Not Available [address] [place], [address] 05/25/2023 16:07:58 05/25/20 23 05/25/2023 COMPR EHENS CLEO METAB OLIC PANEL CO2 27.4 mmol/ L 21.0-3 2.0 normal Not Available [address] [place], [address] 05/25/2023 16:07:58 05/25/20 23 05/25/2023 COMPR EHENS CLEO METAB OLIC PANEL anion gap 8.6 mmol/ L 3-11 normal Not Available [address] [place], [address] 05/25/2023 16:07:58 05/25/20 23 05/25/2023 COMPR EHENS CLEO METAB OLIC PANEL AST 20 U/L 15-37 normal Not Available Hector [address] [place], [address] 05/25/2023 16:07:58 05/25/20 23 05/25/2023 COMPR EHENS CLEO METAB OLIC PANEL ALT 36 U/L 16-63 normal Not Available Hector [address] [place], [address] 05/25/2023 16:07:58 05/25/20 23 05/25/2023 LIPID 2 cholesterol 174 mg/dL <200 Not Available Willard garcias [address] [place], [address] 05/25/2023 16:07:59 05/25/20 23 05/25/2023 LIPID 2 triglyceride 139 mg/dL <150 Not Available [address] [place], [address] 05/25/2023 16:07:59 05/25/20 23 05/25/2023 LIPID 2 HDL cholesterol 67 mg/dL 40-60 Not Available Lataantionette [email or web address] [address] [place], [address] 05/25/2023 16:07:59 05/25/20 23 05/25/2023 LIPID 2 calculated LDL 80 mg/dL <100 Natio nal Laureen stero l Educa tion Progr am (NCEP -ATPI II) class ifica tions : Laureen stero l <200 mg/dL Alecia able Laureen stero l 200-2 39 mg/dL Borde rline High Laureen stero l >or=2 40 mg/dL High HDL <40 mg/dL Low HDL >or=6 0 mg/dL High LDL <100 mg/dL Optim al LDL 100-1 29 mg/dL Near Optim al/Ab ove Optim al LDL 130-1 59 mg/dL Borde rline High LDL 160-1 89 mg/dL High LDL >or=1 90 mg/dL Very High *The above refer ence range is for adult s 18 years or older . Not Available [address] [place], [address] 05/25/2023 16:07:59 05/25/20 23 05/25/2023 HEMOG LOBIN A1C hemoglobin A1C 5.6 % <5.7 Refer ence Range s <5.7 Veronica l 5.7-6 .4% Predi abete s 6.5% or great er Diagn ostic for diabe alysia (if confi rmed) Refer ences : 1. Ameri can Diabe alysia Assoc iatio n. Clas sific ation and Diagn osis of Diabe alysia. Diabe alysia Care 2018 2(Sup pleme nt 1):S1 3-s28 . Not Available [address] [place], [address] 05/25/2023 16:11:58 05/25/2005/25/2023 PSA, SCREE PHILLIP PSA, screening 0.6 NG/mL <=4.5 NOTE: Serum PSA nory ntrat ion shoul d not be inter prete d as absol tolowa dee-ni' evide nce for the prese nce or absen ce of anton deluna se. Assay ed on Sieme ns [facility] Cent[facility] ur XPT using chemi lumin escen t techn ology . Value s obtai nathan by using diffe rent assay metho ds canno t be used inter henning eably . Test perfo rmed or refer red by [facility] [address] [place] [place] [address] Not Available [facility] [address] , [place], [address] 05/27/2023 09:32:10 02/19/20 24 06/07/2021 imagi ng/di agnos tic resul t No observ ation record ed. [email or web address] Not Available 02/18 03:51:25 02/19/20 24 06/07/2021 imagi ng/di agnos tic resul t No observ ation record ed. [email or web address] Not Available 02/18 03:51:26 02/19/20 24 10/21/2019 imagi ng/di agnos tic resul t No observ ation record ed. [email or web address] Not Available 02/18 03:51:37 02/19/20 24 11/11/2018 imagi ng/di agnos tic resul t No observ ation record ed. [email or web address] Not Available 02/18 03:51:48 02/19/20 24 06/07/2021 imagi ng/di agnos tic resul t No observ ation record ed. [email or web address] Not Available 02/18 03:51:50 02/19/20 24 06/08/2021 XR, chest No observ ation record ed. [email or web address] Not Available 02/18 03:52:08 02/19/20 24 11/12/2018 imagi ng/di agnos tic resul t No observ ation record ed. [email or web address] Not Available 02/18 03:52:26 Result Notes None recorded. 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 5 09:02:30 Gastroes ophageal reflux disease without esophagi tis 014847895 Active 201905/26/20 - Comments only - Coby Enriquez MD - Well-con trolled on Nexium. He did have some mild gastropa thy/infl ammation on upper endoscop y done earlier this year. Clinical ly symptoms have improved with the Nexium. He will continue the same. Problem Code: K21.9; Problem Code Type: ICD-10; Not Available [facility] 3 04:17:15 Hyperlip idemia 61784788 Active 201905/26/20 - Comments only - Coby Enriquez MD - We will be rechecki ng lipids and LFTs, on Crestor. Problem Code: E78.5; Problem Code Type: ICD-10; Not Available [facility] 3 04:17:15 Neuralgi a 23539013 Active 201905/26/20 22 - Comments only - Coby Enriquez MD - Followin g foot surgery. He has tapered off the gabapent in and feels he doing okay without it. Disconti nued. Not Available [facility] 3 04:17:15 Disorder of skin and/or subcutan eous tissue 96678389 Active 201905/23/20 21 - Comments only - Coby Enriquez MD - - one darker nevus - I circled it and asked that he have his weigh in on if it has changed. He can call if he thinks it should be removed. Problem Code: L98.9; Problem Code Type: ICD-10; Not Available [facility] 3 04:17:15 Chest pain 82057366 Active 201906/23/19 22 - Comments only - Coby Enriquez MD - - w/u in ED negative for any cardiac abnormal ity. He had a negative stress test in 2019. Symptoms sound to have resolved with now adequate tx for GERD. If any recurren ce he will call. Problem Code: R07.89; Problem Code Type: ICD-10; Not Available [facility] 3 04:17:15 Insomnia 657669933 Active 202005/23/20 21 - Comments only - Coby Enriquez MD - , likely due to erratic work schedule - sometime s working nights, othertim es days. He feels that the melatoni n does help. If any worsenin g he can call. Problem Code: G47.00; Problem Code Type: ICD-10; Not Available [facility] 3 04:17:16 Fatigue 07563045 Active 202005/26/20 22 - Comments only - Coby Enriquez MD - , Mild/ins omnia. We will check a CBC, TSH. Referral for sleep study. It does not sound like he particul mckay has restless leg syndrome , question sleep apnea or other sleep disorder . He does sometime s work nights. Problem Code: R53.83; Problem Code Type: ICD-10; Not Available [facility] 3 04:17:16 Palpitat ions 03727317 Active 202106/23/19 22 - Comments only - Coby Enriquez MD - discusse d that he could be developi ng a paroxysm al dysrhyth jose - his father has a-fib (Silvana feels related to his COPD). Silvana has not had a TSH done. Problem Code: R00.2; Problem Code Type: ICD-10; Not Available [facility] 3 04:17:16 Lung field abnormal 073913989 Active 202106/23/19 22 - Comments only - Coby Enriquez MD - , see under respirat ory in ROS. He is asymptom atic. WIll consider repeat in 1-2 months. Problem Code: R91.8; Problem Code Type: ICD-10; Not Available [facility] 3 04:17:16 Lateral epicondy litis of right humerus 30339806019 9107 Active 202106/23/19 22 - Comments only - Coby Enriquez MD - he is aware of what exacerba alysia it - arm band given in the office with instruct ion. If worsenin g he will call. Problem Code: M77.11; Problem Code Type: ICD-10; Not Available [facility] 3 04:17:16 History of SARS-CoV -2 23596760139 9742291 Active 2021 Problem Code: Z86.16; Problem Code Type: ICD-10; Not Available [facility] 3 04:17:16 Adult health examinat ion Active 201405/26/20 22 - Comments only - Coby Enriquez MD - , Continui ng to lead a healthy lifestyl e. We will check lipids, PSA. Up-to-da te on colonosc opy. 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 Problem Code: L82.1; Problem Code Type: ICD-10; Not Available [facility] 3 04:17:17 Melanocy tic nevus 025132034 Active 2016 Problem Code: D22.9; Problem Code Type: ICD-10; Not Available [facility] 3 04:17:17 Benign neoplasm of skin 53030481 Active 2016 Problem Code: D23.9; Problem Code Type: ICD-10; Not Available [facility] 3 04:17:17 Hemangio ma 209669639 Active 2016 Problem Code: D18.00; Problem Code Type: ICD-10; Not Available [facility] 3 04:17:17 Acute upper respirat ory infectio n 98953492 Completed 201605/26/2022 Problem Code: J06.9; Problem Code Type: ICD-10; Not Available [facility] 3 04:17:19 Pain in thoracic spine 622322591 Completed 201504/05/2017 Problem Code: M54.89; Problem Code Type: ICD-10; Not Available [facility] 3 04:17:19 Corneal ulcer 28827911 Completed 201405/26/2022 Problem Code: H16.009; Problem Code Type: ICD-10; Not Available [facility] 04:17:20 Impacted cerumen in right ear 66966474623 61116 Completed 201605/26/2022 Problem Code: H61.21; Problem Code Type: ICD-10; Not Available [facility] 04:17:20 Vertigo 942134235 Active [address], [place], [address] , [facility] 08:13:29 Nystagmu s test Active 2022 positive with head rotation to the right MD Juan [address], [place], [address] , [facility] 08:13:58 Problem Notes None recorded. Procedures Surgical History None recorded. Imaging Results Imaging Date Name Status LastModified by [facility] Details LastModified Time 06/07/2021 imaging/diag nostic result completed Information not available 02/19/2024 03:51:25 06/07/2021 imaging/diag nostic result completed Information not available 02/19/2024 03:51:26 10/21/2019 imaging/diag nostic result completed Information not available 02/19/2024 03:51:37 11/11/2018 imaging/diag nostic result completed Information not available 02/19/2024 03:51:48 06/07/2021 imaging/diag nostic result completed Information not available 02/19/2024 03:51:50 06/08/2021 XR, chest completed Information no t available 02/19/2024 03:52:08 11/12/2018 imaging/diag nostic result completed Information not available 02/19/2024 03:52:26 Procedure Notes None recorded. Medical Equipment None Reported. Allergies Allergen ID Allergen Name Allergen Category Reaction Reaction Severity Criticality Documentation Date Start Date Code Code System Note Provider Name and Address Organization Details Recorded Time wasp venoms environme nt anaphylax is Not available Not available 04/14/20232017 06167 RxNorm Anaph ylaxi s Aller gyNam e: 'BEE STING S'; Rachele Allred RN null, [facility] 3 06:11:02 66251 sulfadiaz ine medicatio n hives rash moderate moderate high 04/14/20232015 24932 RxNorm Rachele Allred RN null, [facility] 3 06:11:20 11596 hogue allergeni c extract food,medi cation other severe high 05/24/20232015 56208 1 RxNorm maras aris cherr ies Rachele Allred RN null, [facility] 3 06:10:39 23266 honey bee venom medicatio n anaphylax is severe high 05/24/20232017 11585 7 RxNorm Rachele Allred RN null, [facility] 3 06:10:57 Medications Name Sig Start Date Stop Date Status Note LastModified by Organization Details LastModified Time doxycycline hyclate 100 mg capsule 05/25 completed Not Available Not Available Not Available Vitamin C 500 mg tablet Take 1 tablet every day by oral route. active Not Available Not Available No t Available Carafate 1 gram tablet Take 1 tablet by mouth four times a day before meals and bedtime 05/24 completed Not Available Not Available Not Available azithromyci n 250 mg tablet Take 2 by mouth now, then take 1 by mouth daily x 4 days 05/23 completed Not Available Not Available Not Available prednisone 20 mg tablet 3 tabs for 2d then 2 tabs for 3d then 1 tab for 3d then 1/2 tab for 2d 06/29 completed Not Available Not Available Not Available Ilotycin 5 mg/gram (0.5 %) eye ointment three times daily 06/25 completed [facility] Not Available Not Available Not Available cephalexin 500 mg capsule Take 1 tab by mouth four times daily 06/20 completed Not Available Not Available Not Available gabapentin 300 mg capsule Take 1 capsule by mouth every night 10/07 completed Not Available Not Available Not Available aspirin 81 mg tablet Take 1 tablet by mouth three times a week 05/21 completed Not Available Not Available Not Available Aspir-81 mg tablet,marta yed release Take 1 tab by mouth 3 days a week 04/05 completed Not Available Not Available Not Available epinephrine 0.3 mg/0.3 mL injection, auto-inject or Use as directed 2024 active Not Available Not Available Not Avai lable Pepcid 20 mg tablet Take 1 tablet by mouth once a day 05/21 completed Not Available Not Available Not Available multivitami n capsule 1 tab daily 2015 active Not Available Not Available Not Avai lable esomeprazol e magnesium 20 mg capsule,del ayed release Take 1 capsule every day by oral route. active Not Available Not Available No t Available Skelaxin 800 mg tablet 1 po tid prn 04/05 completed Not Available Not Available Not Available rosuvastati n 20 mg tablet Take 1 tablet every day by oral route. active Not Available Not Available No t Available Vitamin D3 1000 IU daily active Not Available Not Available No t Available Multivitami ns 1 tablet once a day 2015 active Not Available Not Available Not Avai lable Vitamin D3 50 mcg (2,000 unit) capsule Take 1 capsule by mouth once a day 05/25 completed Not Available Not Available Not Available melatonin 10 mg tablet 1 tab qhs 2019 active Not Available Not Available Not Avai lable melatonin 10 mg capsule Take 1 capsule every day by oral route at bedtime. active Not Available Not Available No t Available melatonin 10 mg-lemon balm leaf extract 1 mg tablet 1 tablet every night 05/25 completed Not Available Not Available Not Available ashwagandha root extract 300 mg capsule Take 1 capsule every day by oral route at bedtime. 2022 active Not Available Not Available Not Avai lable turmeric 100 mg-lisandro 150 mg-olive 50 mg-oreg 150 mg-capryl capsule Take 1 capsule every day by oral route. 2022 active Not Available Not Available Not Avai lable Vitals Date Recorded Body temperature Oxygen saturation Oxygen saturation in Arterial blood by Pulse oximetry Heart rate Respiratory rate Body height Body mass index (BMI) Body weight Systolic blood pressure Diastolic blood pressure Provider Name and Address Organization Details Last Updated DateTime 3 97.4 [degF] 95 % 95 % 64 /min 13.99 /min 177.8 cm 29.3 kg/m2 18552.8 4 g 118 mm[Hg] 88 mm[Hg] Rachele Allred RN [facility] 3 09:08:39 Date Recorded Body weight Oxygen saturation Oxygen saturation in Arterial blood by Pulse oximetry Heart rate Body mass index (BMI) Body height Systolic blood pressure Diastolic blood pressure Provider Name and Address Organization Details Last Updated DateTime 5 09136.4 1 g 98 % 98 % 64 /min 29.2 kg/m2 177.8 cm 112 mm[Hg] 74 mm[Hg] Pantera Albert MA [facility] 5 08:11:02 Social History Question Answer Notes LastModified by Organizat ion Details LastModified Time Tobacco Smoking Status Never Smoker Rachele Allred RN [facility], [facility] 05/25/2023 09:03:34 Do You Have An Advance Directive? Yes [email or web address] Information n ot available 05/25/2023 Is Blood Transfusion Acceptable In An Emergency? Yes [email or web address] Information not available 05/25/2023 What Is Your Code Status? Full Code [email or web address] Information not available 05/25/2023 Are You Currently Employed? Yes [email or web address] Information not available 05/25/2023 What Type Of Diet Are You Following? REGULAR [email or web address] Information n ot available 05/25/2023 What Is The Highest Grade Or Level Of School You Have Completed Or The Highest Degree You Have Received? FO84090-4 [email or web address] Information not available 05/25/2023 Who Is Your Employer? 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 60 [email or web address] Information not available 05/25/2023 How Many Times Per Week Do You Exercise? 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 Yes [email or web address] Information not available 05/25/2023 Would You Say That, In General, Your Health Is Excellent [email or web address] Information not available 06/20/2024 How Often Does Anyone, Including Family, Physically Hurt You? Never [email or web address] Information not available 05/25/2023 How Often Does Anyone, Including Family, Insult Or Talk Down To You? Never Information no t available 05/25/2023 How Often Does Anyone, Including Family, Threaten You With Harm? Never [email or web address] Information not available 05/25/2023 How Often Does Anyone, Including Family, Scream Or Curse At You? Never Information not available 05/25/2023 Within The Past 12 Months, You Worried That Your Food Would Run Out Before You Got Money To Buy More. Never True [email or web address] Information n ot available 05/25/2023 Within The Past 12 Months, The Food You Bought Just Didn't Last And You Didn't Have Money To Get More. Never True [email or web address] Information n ot available 05/25/2023 How Hard Is It For You To Pay For The Very Basics Like Food, Housing, Medical Care, And Heating? Would You Say It Is: Not Hard At All [email or web address] Information not available 05/25/2023 In The Past 12 Months, Has Lack Of Reliable Transportation Kept You From Medical Appointments, Meetings, Work Or From Getting Things Needed For Daily Living? No [email or web address] Information not available 05/25/2023 What Is Your Housing Situation Today? I Have Housing. [email or web address] Information not available 05/25/2023 Who Do You Live With? [email or web address] Information not available 05/25/2023 How Often In The Past Year Have You Used Marijuana (including Smoking, Vaping, Dabbing, Or Edibles)? Never [email or web address] Information not available 05/25/2023 How Often In The Past Year Have You Used Prescription Medications That Were Not Prescribed To You? Never [email or web address] Information n ot available 05/25/2023 How Often In The Past Year Have You Taken Your Own Prescription Medication More Than The Way It Was Prescribed Or For Different Reasons Than Its Intended Purpose? Never [email or web address] Information no t available 05/25/2023 How Often In The Past Year Have You Used Other Drugs (for Example, Heroin, Cocaine, Meth, Salvia, Inhalants)? Never [email or web address] Information not available 05/25/2023 Have You Ever Used IV Drugs? No [email or web address] Information not available 05/25/2023 Date Of Most Recent SBINS 06/20/2024 [email or web address] Information not available 06/20/2024 Do You Have A Medical Power Of Tableau Administrator? No [email or web address] Information not available 05/25/2023 What Was The Date Of Your Most Recent Tobacco Screening? 06/20/2024 Information not available 06/20/2024 How Many Children Do You Have? 3 [email or web address] Information not available 05/25/2023 What Is Your Relationship Status? [email or web address] Information not available 05/25/2023 What Types Of Sporting Activities Do You Participate In? Running, Stacking Wood [email or web address] Information not available 05/25/2023 Has Tobacco Cessation Counseling Been Provided? No [email or web address] Information not available 05/25/2023 Are You Currently In School? No [email or web address] Information not available 05/25/2023 Do You Have Any Dietary Restrictions? No [email or web address] Information not available 05/25/2023 Do You Or Have You Ever Used Any Other Forms Of Tobacco Or Nicotine? No [email or web address] Information not available 05/25/2023 Sex: Male Functional Status Question Answer Note LastModified by Organization D etails LastModified Time What is your exercise level? Moderate Information not available 05/25/2023 Mental Status None recorded. Family History Nothing Reported Notes:*Problem: mother at 62 from lymphoma(non-Hodgkins) also h/o MM with stem stem transplant, high cholesterol, prediabetic father 85 yo with skin cancer, non melanoma, RA, prostate cancer in remission, a-fib, COPD brother with RA, DJD of spine, other brother healthy sister with DJD of spine MGM and MGF lived to , had diabetes Medical History No medical history recorded. Immunizations Vaccine Type Date Status Note Provider Nam e and Address Organization Details Recorded Time Influenza, split virus, trivalent, PF 4 completed CRYSTAL Sepulveda, [facility] 03/18/2024 12:08:22 COVID-19, mRNA, LNP-S, PF, gildardo-sucrose, 30 mcg/0.3 mL 4 completed CRYSTAL Sepulveda, [facility] 03/18/2024 12:08:22 Tdap 9 completed Not Available [facility] 04/14/2023 05:25:20 Tdap 7 completed Not Available [facility] 04/14/2023 05:25:20 Td(adult) unspecified formulation 2 completed Not Available [facility] 04/14/2023 05:25:20 Influenza, split virus, trivalent, preservative 5 completed Not Available [facility] 04/14/2023 05:25:21 Influenza, split virus, trivalent, preservative 6 completed Not Available [facility] 04/14/2023 05:25:21 Influenza, split virus, quadrivalent, preservative 7 completed Not Available [facility] 04/14/2023 05:25:21 COVID-19 vaccine, vector-nr, rS-ChAdOx1, PF, 0.5 mL 0 completed Not Available [facility] 04/14/2023 05:25:22 SARS-COV-2 (COVID-19) vaccine, UNSPECIFIED 2 completed Not Available [facility] 04/14/2023 05:25:22 SARS-COV-2 (COVID-19) vaccine, UNSPECIFIED 1 completed Not Available [facility] 04/14/2023 05:25:22 SARS-COV-2 (COVID-19) vaccine, UNSPECIFIED 0 completed Not Available [facility] 04/14/2023 05:25:22 influenza, unspecified formulation 1 completed Not Available [facility] 04/14/2023 05:25:22 influenza, unspecified formulation 2 completed Not Available [facility] 04/14/2023 05:25:22 SARS-COV-2 (COVID-19) vaccine, UNSPECIFIED 2 completed Rachele Allred RN null, [facility] 05/24/2023 06:06:55 SARS-COV-2 (COVID-19) vaccine, UNSPECIFIED 3 completed Rachele Allred RN null, [facility] 05/24/2023 06:07:33 influenza, unspecified formulation 3 completed Rachele Allred RN null, [facility] 05/24/2023 06:08:21 zoster recombinant 5 completed Pantera Albetr MA null, [facility] 06/20/2024 10:30:25 zoster recombinant 3 completed COBY ENRIQUEZ MD [facility] [address], [place], [address], [facility] 05/27/2023 08:04:28 Past Encounters Encounter ID Performer Location Encounter Start Date Encounter Closed Date Diagnosis/Indication Diagnosis SNOMED-CT Code Diagnosis ICD10 Code Diagnosis Note [id number] COBY ENRIQUEZ MD [address] [address] 05/25/2023 08:54:18 05/25/2023 10:18:52 Active or passive immunization 255802394 Z23 Adult [facility] th examination 073942522 Z00.00 Silvana continuing to lead a healthy lifestyle, will be resuming exercise more regularly again once he passes his upcoming board exam. Gastroesop hageal reflux disease without esophagitis 863931714 K21.9 He is on Nexium quite helpful, gets recurrent GERD symptoms if he stops it for more than a few days Hyperlipidemia 89478887 E78.5 Tolerating rosuvastat in at 20 mg daily, will be checking lipids, LFTs Insomnia 313041761 G47.0 0 Currently trying ashwagandh a root. Too early to tell if that will helpful. He is otherwise tried a variety of OTC medication s without much benefit. I did encourage him to schedule an sleep study to rule out physiologi c causes of insomnia Vertigo 336413553 R42 Which is a newer diagnosis for him. I believe this is benign positional vertigo. We discussed referrals to PT and ENT. He states he already knows the exercises to do as his has vertigo and he will try doing some of the regular exercises, Gayatri and Prescott-Hallpi ke. If this does not work for him then he would like to meet with ENT. [id number] Pantera Albert [address] [address] 03/16/2024 11:16:39 03/16/2024 11:28:31 Active or passive immunization 687493046 Z23 [id number] Harmony Garrett [address] [address] 06/20/2024 07:59:25 06/20/2024 09:30:58 Adult health examination 039289066 Z00.00 Silvana continuing to lead a healthy lifestyle, will be resuming exercise more regularly again once he passes his upcoming board exam. Active or passive immunization 827334912 Z23 Screening for malignant neoplasm of colon 736434419 Z12.11 Upper + Lower endoscopy performed 2021, UTD Allergy to hymenoptera venom [id number] 1980238 Z91.038 Screening for malignant neoplasm of prostate 059695344 Z12.5 Health Concerns Section Related Observation LastModified by Organization Detai ls LastModified Time None Recorded Concern Status LastModified by Organization Details LastModified Time None Recorded Advance Directives Directive Y: Payers Encounter Date Sequence Insurance Name Policy Number Policy Milian Covered Member ID Milian Member ID Guarantor Name 05/25/2023 1 [employer] Julito Yost [id number] Julito Yost 03/16/2024 1 [employer] - [facility] [id number] Julito Yost [id number] Julito Yost Notes Date Note Type Note Provider Name and Address Organization Details Recorded Time 05/25/2023 text/html Silvana here today for an AE COBY ENRIQUEZ MD [address], [place], [address], [facility]. 05/27/2023 08:20:29
--- OUTSIDE RECORDS SUMMARY | 2024-06-20 13:57 | XMS_ITS | Clinical Summary ---
Author Organization [facility] Address [facility] [place] [address] Care Team Providers Care Grain Scooper Name Role Phone Ansley Mir MD Primary Care Provider [phone] Allergies Active Allergy Reactions Criticality Noted Date Comments Sulfa (Sulfonamide Antibiotics) Hives 01/03 Rash and hives Medications Medication Sig Dispensed Refills Start Date End Date Status omeprazole (PRILOSEC) 20 mg Capsule, Delayed Release(E.C.) Take 20 mg by mouth daily. Active multivitamin Capsule Take 1 capsule by mouth daily. Active gabapentin (NEURONTIN) 300 mg Capsule Take 300 mg by mouth nightly. Active cephALEXin (KEFLEX) 500 mg Capsule Take 500 mg by mouth 4 times daily. Active Immunizations Name Administration Dates Next Due Covid-19 (AstraZeneca Vaxzevria, Covishield) (No n-US) 05/14/2020,04/16/2020 Covid-19 Monovalent (Moderna Spikevax) 12yrs+ ([id number]) 03/27/2021 Social History Tobacco Use Types Packs/Day Years Used Date Smoking Tobacco: Never Smokeless Tobacco: Never Sex and Gender Information Value Date Recorded Sex Assigned at Not on file Gender Identity Not on file Sexual Orientation Not on file Plan of Treatment Health Maintenance Due Date Last Done Comments CT Colonography 1961 Colonoscopy 1961 Colorectal Cancer Screening 1961 FIT DNA 1961 FIT 1961 Sigmoidoscopy (10 year) with FIT yearly 1961 Sigmoidoscopy 1961 HIV screen 1979 Hepatitis C Screening 1979 Lipid Screening 1979 Tetanus/Diphtheria/Pertussis Vaccines (1 - Tdap) 1980 Pneumoccocal Vaccine: 50+ (1 of 1 - PCV) 2011 Zoster vaccine (1 of 2) 2011 Advance Directive 2016 Covid-19 Vaccine (4 - 2023- season) 2024 03/27/2021, 05/14/2020, 04/16/2020 Influenza (Flu) vaccine (1 o f 1 - Influenza standard series) 02/04/2024 Care Teams Grain Scooper Relationship Specialty Start Date End Date Ansley Mir MD [address] [place], [place] [id number] PCP - General Family Medicine 11/02/18
--- OUTSIDE RECORDS SUMMARY | 2024-06-20 13:58 | XMS_ITS | Encounter Summary ---
Author Organization [facility] Address [address] [place] [address] Care Team Providers Care Green End Man Name Role Phone Kelsi Toscano MD Primary Care Provide r Unavailable Encounter Details Date Type Department Care Team (Late st Contact Info) Description 05/11/2019 Lab Requisition [facility] Pathology & Laboratory Medicine - [facility] [address] [place] [address] Kelsi Toscano MD Social History Tobacco Use Types Packs/Day Years Used Date Smoking Tobacco: Never Assessed Sex and Gender Information Value Date Recorded Sex Assigned at Not on file Legal Sex Male 16:18 EDT Gender Identity Not on file Sexual Orientation Not on file documented as of this encounter Plan of Treatment Not on file documented as of this encounter Procedures Procedure Name Priority Date/Time Associated Diagnosis Comments PSA TOTAL, DIAGNOSTIC Routine 05/10/2019 8:51 EST documented in this encounter Results * PSA TOTAL, DIAGNOSTIC (05/10/2019 8:51 EST) PSA 0.7 0.0 - 3.5 ng/mL 05/13/2019 11:09 EST [facility] Comment: NOTE: Serum PSA concentration should not be interpreted as absolute evidence for the presence or absence of malignant disease. Assayed on Siemens ADVIA Centaur XPT using chemiluminescent technology. ??Values obtained by using different assay methods cannot be used interchangeably. Blood VENOUS BLOOD / Unknown 05/10/2019 8:51 EST 05/12/2019 15:46 EST us Kelsi Murguia MD CHEMISTRY & BLOOD GAS ORDERABLES Final Result [facility] [address] [place] [address] documented in this encounter Visit Diagnoses Not on filedocumented in this encounter Care Teams Green End Man Relationship Specialty Start Date End Date Kelsi Toscano MD PCP - General 04/06/17 documented as of this encounter
--- OUTSIDE RECORDS SUMMARY | 2024-06-20 13:58 | XMS_ITS | Clinical Summary ---
Author Organization [facility] Address [address] [place] [address] Care Team Providers Care Experimental Flight Test Mechanic Name Role Phone Kelsi Toscano MD Primary Care Provide r Unavailable Immunizations Name Administration Dates Next Due INV: Covid-19 Vaccine [id number] 2 Injection (IRB#[id number]) 0.5 ml IM 05/14/2020,04/16/2020 Social History Tobacco Use Types Packs/Day Years Used Date Smoking Tobacco: Never Assessed Interpersonal Safety Answer Date Record ed Physically Hurt Never 08/30/2020 Verbally Threaten Not on file 08/30/2020 Sex and Gender Information Value Date Recorded Sex Assigned at Not on file Legal Sex Male 16:18 EDT Gender Identity Not on file Sexual Orientation Not on file Plan of Treatment Health Maintenance Due Date Last Done Comments Hepatitis C Screen 1961 COVID-19 Vaccine ( season) 2024 03/27/2021, 05/14/2020, 04/16/2020 RSV Immunization ( o r 60+ Years) (1 - 1-dose 75+ series) 2036 Insurance [employer] PLANS Care Teams Experimental Flight Test Mechanic Relationship Specialty Start Date End Date Kelsi Toscano MD PCP - General 04/06/17
--- OUTSIDE RECORDS SUMMARY | 2024-06-20 13:58 | XMS_ITS | Encounter Summary ---
Author Organization [facility] Address [address] [place] [address] Care Team Providers Care Roller Setter Name Role Phone Kelsi Toscano MD Primary Care Provide r Unavailable Encounter Details Date Type Department Care Team (Late st Contact Info) Description 02/24/2021 Lab Requisition [facility] Pathology & Laboratory Medicine - [facility] [address] [place] [address] Outr Resulting Lab, Provider Social History Tobacco Use Types Packs/Day Years [...] Procedure Name Priority Date/Time Associated Diagnosis Comments ZZCOVID-19 TEST [facility] PCR Today 02/24/2021 10:05 EDT COVID-19 TESTING Routine 02/24/2021 10:0 5 EDT documented in this encounter Results * COVID-19 TEST [facility] PCR (02/24/2021 10:05 EDT) Swab ENTIRE NASOPHARYNX / Unknown 02/24/2021 10:05 EDT 02/24/2021 15:55 EDT us Provider Outr Resulting Lab MICROBIOLOGY - GENER AL ORDERABLES Final Result [facility] [address] [place] [address] * COVID-19 TESTING (02/24/2021 10:05 EDT) COVID-19 rt-PCR Result Negative Negative 02/24/2021 20:10 EDT [facility] Comment: This test has not been FDA cleared or approved. This test has been authorized by FDA under an EUA for use by authorized laboratories. This test has been authorized only for detection of nucleic acid from 2019-nCoV, not for any other viruses or pathogens. This test is only authorized for the duration of the declaration that circumstances exist justifying the authorization of emergency use of in vitro diagnostic tests for detection and/or diagnosis of 2019-nCoV under section 564(b)(1) of Act, 21 U.S.C ?? 360bbb-3(b) (1), unless the authorization is terminated or revoked sooner. Negative results do not preclude 2019-nCoV infection and should not be used as the sole basis for treatment or other patient management decisions. Negative results must be combined with clinical observations, patient history, and epidemiological information. Performed on the uBiomeher Fusion instrument Performing Lab [place] [facility] 02/24/2021 20:10 EDT [facility] Swab 02/24/2021 10:0 5 EDT 02/24/2021 15:55 EDT us Provider Outr Resulting Lab MICROBIOLOGY - GENER AL ORDERABLES Final Result [facility] [address] [place] [address] documented in this encounter Visit Diagnoses Not on filedocumented in this encounter Care Teams Roller Setter Relationship Specialty Start Date End Date Kelsi Toscano MD PCP - General 04/06/17 documented as of this encounter
--- OUTSIDE RECORDS SUMMARY | 2024-06-20 13:58 | XMS_ITS | Encounter Summary ---
Author Organization [facility] Address [address] [place] [address] Care Team Providers Care Pop Singer Name Role Phone Kelsi Toscano MD Primary Care Provide r Unavailable Encounter Details Date Type Department Care Team (Late st Contact Info) Description 10/24/2019 Lab Requisition [facility] Pathology & Laboratory Medicine - [facility] [address] [place] [address] Outr Resulting Lab, Provider Social History Tobacco [...] Procedure Name Priority Date/Time Associated Diagnosis Comments DO NOT ORDER STANDALONE - BROAD COVID TEST Today 10/24/2019 11:59 EDT COVID-19 TESTING Routine 10/24/2019 11:5 9 EDT documented in this encounter Results * DO NOT ORDER STANDALONE - BROAD COVID TEST (10/24/2019 11:59 EDT) COVID-19 rt-PCR Result NEGATIVE Negative 10/25/2019 13:10 EDT [facility] Comment: 2019-novel Coronavirus (2019-nCoV) not detected by the qRT-PCR assay. Consider testing for other respiratory viruses or re-collecting for 2019-nCoV testing. Note: Optimum timing for peak viral levels during infections caused by 2019-nCoV have not been determined. Collection of multiple specimens from the same patient may be necessary to detect the virus. Limitations Positive results are indicative of active infection with SARS-CoV-2 but do not rule out bacterial infection or co-infection with other viruses. The agent detected may not be the definite cause of disease. In addition, detection of viral RNA may not indicate the presence of infectious virus or that SARS-CoV-2 is the causative agent for clinical symptoms. Negative results do not preclude SARS-CoV-2 infection and should not be used as the sole basis for patient management decisions. Negative results must be combined with clinical observations, patient history, and epidemiological information. False negative results may also occur if amplification inhibitors are present in the specimen or if inadequate numbers of organisms are present in the specimen. Optimum specimen types and timing for peak viral levels during infections caused by SARS-CoV-2 have not been fully determined. Collection of multiple specimens (types and time points) from the same patient may be necessary to detect the virus. The test was validated for use with upper respiratory specimens obtained via nasopharyngeal or oropharyngeal swabs in VTM, UTM, M4, M5, M6, saline, and MTM media. The performance of this test has not been established for other specimens. Specimens collected using other FDA recommended Specimen Collection Materials listed in the FDA COVID-19 Diagnostic Technologies communication (August 29, 2019) are processed with the caveat that they were not all validated for use with this test and the result must be interpreted in this context. Furthermore, a false negative results may occur if a specimen is improperly collected, transported or handled. If the virus mutates in the RT-PCR target region, SARS-CoV-2 may not be detected or may be detected less predictably. Inhibitors or other types of interference may produce a false negative result. An interference study evaluating the effect of common cold medications was not performed. This test is not FDA-cleared but its performance characteristics were established by our CLIA-certified, CAP-accredited, high complexity laboratory in accordance with CLIA regulations, College of [place] [employer] (CAP) guidelines (Aug 22, 2019), and FDA guidance (Aug 03, 2019). This test is only for use under the Food and Drug Administration's Emergency Use Authorization. Swab ENTIRE NASOPHARYNX / Unknown 10/24/2019 11:59 EDT 10/24/2019 15:42 EDT us Provider Outr Resulting Lab MICROBIOLOGY - GENER AL ORDERABLES Final Result [facility] [place], [place] * COVID-19 TESTING (10/24/2019 11:59 EDT) Pathologist [facility] COVID-19 rt-PCR Result NEGATIVE Negative 10/25/2019 14:35 EDT [facility] Comment: 2019-novel Coronavirus (2019-nCoV) not detected by the qRT-PCR assay. Consider testing for other respiratory viruses or re-collecting for 2019-nCoV testing. Note: Optimum timing for peak viral levels during infections caused by 2019-nCoV have not been determined. Collection of multiple specimens from the same patient may be necessary to detect the virus. Limitations Positive results are indicative of active infection with SARS-CoV-2 but do not rule out bacterial infection or co-infection with other viruses. The agent detected may not be the definite cause of disease. In addition, detection of viral RNA may not indicate the presence of infectious virus or that SARS-CoV-2 is the causative agent for clinical symptoms. Negative results do not preclude SARS-CoV-2 infection and should not be used as the sole basis for patient management decisions. Negative results must be combined with clinical observations, patient history, and epidemiological information. False negative results may also occur if amplification inhibitors are present in the specimen or if inadequate numbers of organisms are present in the specimen. Optimum specimen types and timing for peak viral levels during infections caused by SARS-CoV-2 have not been fully determined. Collection of multiple specimens (types and time points) from the same patient may be necessary to detect the virus. The test was validated for use with upper respiratory specimens obtained via nasopharyngeal or oropharyngeal swabs in VTM, UTM, M4, M5, M6, saline, and MTM media. The performance of this test has not been established for other specimens. Specimens collected using other FDA recommended Specimen Collection Materials listed in the FDA COVID-19 Diagnostic [employer] communication (August 29, 2019) are processed with the caveat that they were not all validated for use with this test and the result must be interpreted in this context. Furthermore, a false negative results may occur if a specimen is improperly collected, transported or handled. If the virus mutates in the RT-PCR target region, SARS-CoV-2 may not be detected or may be detected less predictably. Inhibitors or other types of interference may produce a false negative result. An interference study evaluating the effect of common cold medications was not performed. This test is not FDA-cleared but its performance characteristics were established by our CLIA-certified, CAP-accredited, high complexity laboratory in accordance with CLIA regulations, [employer] of [place] [employer] (CAP) guidelines (Aug 22, 2019), and FDA guidance (Aug 03, 2019). This test is only for use under the Food and Drug Administration's Emergency Use Authorization. Performing Lab [facility] 10/25/2019 14:35 EDT [facility] Swab ENTIRE NASOPHARYNX / Unknown 10/24/2019 11:59 EDT 10/24/2019 15:42 EDT us Provider Outr Resulting Lab MICROBIOLOGY - GENER AL ORDERABLES Final Result [facility] [address] [place] [address] [facility] [place], [place] documented in this encounter Visit Diagnoses Not on filedocumented in this encounter Care Teams Pop Singer Relationship Specialty Start Date End Date Kelsi Toscano MD PCP - General 04/06/17 documented as of this encounter
--- OUTSIDE RECORDS SUMMARY | 2024-06-20 13:58 | XMS_ITS | Encounter Summary ---
Author Organization [facility] Address [address] [place] [address] Care Team Providers Care Hydraulic Corrugating Machine Operator Name Role Phone Kelsi Toscano MD Primary Care Provide r Unavailable Encounter Details Date Type Department Care Team (Late st Contact Info) Description 06/05/2022 Lab Requisition [facility] Pathology & Laboratory Medicine - [facility] [address] [place], [place] [id number] Outr Resulting Lab, Provider Social History Tobacco [...] Associated Diagnosis Comments PSA TOTAL, DIAGNOSTIC Routine 06/04/2022 8:00 EST documented in this encounter Results * PSA TOTAL, DIAGNOSTIC (06/04/2022 8:00 EST) PSA 0.5 <=4.5 ng/mL 06/06/2022 17:33 EST [facility] Blood VENOUS BLOOD / Unknown 06/04/2022 8:00 EST 06/06/2022 15:57 EST Narrative [facility] - 06/06/2022 17:33 EST NOTE: Serum PSA concentration should not be interpreted as absolute evidence for the presence or absence of malignant disease. Assayed on Siemens ADVIA Jacket Micro Devicesaur XPT using chemiluminescent technology.??Values obtained by using different assay methods cannot be used interchangeably. us Provider Outr Resulting Lab CHEMISTRY & BLOOD GA S ORDERABLES Final Result [facility] [address] [place] [id number] documented in this encounter Visit Diagnoses Not on filedocumented in this encounter Care Teams Hydraulic Corrugating Machine Operator Relationship Specialty Start Date End Date Kelsi Toscano MD PCP - General 04/06/17 documented as of this encounter
--- OUTSIDE RECORDS SUMMARY | 2024-06-20 13:58 | XMS_ITS | Encounter Summary ---
Author Organization [facility] [place] [address] Care Team Providers Care Ui Engineer Name Role Phone Ansley Mir MD Primary Care Provider [phone] Reason for Visit * Reason Comments Skin Check Encounter Details Date Type Department Care Team (Late st Contact Info) Description 01/16/2019 9:15 AM EDT Office Visit Dermatology at [facility] [address] [place] [address] Christian Gillespie MD Neoplasm of uncertain behavior of skin; Venous jin; Multiple benign nevi Social History Tobacco Use Types Packs/Day Years Used Date Smoking Tobacco: Never Smokeless Tobacco: Never Sex and Gender Information Value Date Recorded Sex Assigned at Not on file Gender Identity Not on file Sexual Orientation Not on file documented as of this encounter Progress Notes * Christian Gillespie MD - 01/16/2019 9:15 AM EDT Images from the original note were not included. DERMATOLOGY AT [facility] Dermatology At [facility] [address] [facility] [address] NEW PATIENT - CONSULT VISIT Date of service: 01/16/2019 Julito Yost : 1960 Provider: Christian Gillespie MD Preferred name: Fabiansteve maeve Rizvi Preferred contact method with results: Cell phone [phone] Message okay: Yes SKIN HISTORY: No history of skin cancer No history of eczema, psoriasis, or rosacea Seborrheic keratoses removed from the right shoulder. 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 Here today for a growth over the right ear present for about 6 weeks. This area itches and does bleed when he scratches it. He denies any tenderness to the area. He applies body lotion daily and wears a baseball cap. - Pt has had seborrheic keratoses removed in the past on the right shoulder. - Pt notes that he sleeps on his back. Medical History Allergies/Hay fever Problem List There is no problem list on file for this patient. Allergies Sulfa (sulfonamide antibiotics) Medications Current Outpatient Medications Medication Sig Dispense Refill ??? omeprazole (PRILOSEC) 20 mg Capsule, Delayed Release(E.C.) Take 20 mg by mouth daily. ??? multivitamin Capsule Take 1 capsule by mouth daily. ??? gabapentin (NEURONTIN) 300 mg Capsule Take 300 mg by mouth nightly. ??? cephALEXin (KEFLEX) 500 mg Capsule Take 500 mg by mouth 4 times daily. No current facility-administered medications for this visit. 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 Examination General: NAD, pleasant, cooperative Type of exam: The patient was asked to disrobe to the level of their comfort. Full skin examination of the scalp, hair, head, face, neck, back, chest, abdomen, right and left upper extremities, right and left lower extremities and buttocks was normal with the exception of the findings listed below. Genitalia not examined. Significant skin findings: ?? Superior to the tragus of the right ear: 6 mm papule with overlying rough yellowish scale and noerythema with well-defined borders [Figure A] ?? Lower left lip: purple macule ?? Back: Multiple, 0.3-0.5cm, medium-brown, evenly-pigmented macules and papules. No pigmented lesions suspicious for melanoma. Images Photo taken and charted with patient consent [Figure A] ASSESSMENT/PLAN: A. ISK vs SCCIS - Recommended a skin biopsy to confirm/clarify the nature of the skin lesion. After discussion of potential risks (scarring, bleeding, infection) and recurrence, patient agreed to proceed. - Patient denies known allergies to lidocaine and epinephrine. Procedure: Shave removal of lesion. Location: Superior to the tragus of the right ear [Figure A] Time of procedure: 9:26 AM Discussed indications for procedure and expectations including risks and benefits. Verbal consent obtained. Skin prepped with alcohol. Local anesthesia with 1% xylocaine, 1/100,000 epinephrine. The lesion was removed by shave technique to the level of the dermis and submitted to Pathology. Hemostasis obtained (AlCl and/or electrocautery). There were no complications; patient tolerated the procedure well. Wound dressed. Post-procedure expectations, wound care and activity restrictions reviewed. - Follow-up based on pathology results. Venous Jin - Benign. No treatment necessary. - Reassured about benign nature and natural history. Benign Appearing Nevi - Benign. No treatment necessary. - Reassured about benign nature and natural history. - Reviewed ABCDEs of Melanoma Sun Care Counseling - Discussed importance of sun protection, sun avoidance strategies, protective clothing, and sunscreen SPF 30+. - Recommend applying sunscreen SPF 30+ daily on the face, neck, and ears. - When going to be outdoors, we recommend at least SPF 50 physical sunscreens or UPF clothing. Remember to reapply sunscreen every 2 hours or after sweating or getting wet when outdoors. - In light of recent FDA testing of chemical sunscreens, which have shown increased levels of certain chemicals in the blood, we have decided to recommend physical sunscreens. These sunscreens are comprised of zinc oxide and/or titanium dioxide. They do not absorb into the skin/blood like chemical s unscreens, but they are just as effective. - While it is unclear if these levels in the bloodstream can cause harm, some states and countries have banned them as they cause damage to coral reefs. - In consideration of the current evidence, we recommend physical sunscreens and are providing a list of just a few to you upon exiting the clinic RTC Pending pathology. Otherwise, every 1-2 years for a full skin exam or sooner as needed. Reminder placed in scheduling system. Note initiated and routed to physician for review and change by: ALBARO Mai I, Salvador Mcginnis, have performed the documentation for this encounter in the presence of and acting as a scribe for CHRISTIAN GILLESPIE MD. I performed the services which were documented by the scribe, and I agree with the accuracy of the documentation in this encounter. CHRISTIAN GILLESPIE MD. Christian Gillespie MD Section of Dermatology [facility] documented in this encounter Plan of Treatment Not on file documented as of this encounter Procedures Procedure Name Priority Date/Time Associated Diagnosis Comments SPECIMEN TO PATHOLOGY Routine 01/16/2019 9:51 AM EDT Neoplasm of uncertain behavior of skin SURGICAL PATHOLOGY REPORT Routine 01/16/2019 9:26 AM EDT documented in this encounter Results * Specimen to Pathology (01/16/2019 9:51 AM EDT) AP Specimen 01/16/2019 9:51 AM EDT 01/16/2019 4:58 PM EDT Narrative [facility] - 01/16/2019 4:58 PM EDT Specimen requisition ordered. ??Separate Pathology report to follow Resulting Agency Comment Spec In Lab Christian Gillespie MD PATHOLOGY/CYTOLOGY O RDERABLES [facility] [place] [address] * Surgical Pathology Report (01/16/2019 9:26 AM EDT) Final Diagnosis [id number] ? Location: [facility] The signing pathologist has (i) examined the relevant preparation(s) for the specimen(s) and (ii) rendered or confirmed the diagnosis(es). . ? Addendum ADDENDUM DISCUSSION Skin, superior to the tragus of the right ear, shave biopsy: Interpretation of deeper levels ?? confirms the previously reported diagnosis. Electronically signed by: ??Raji Srinivasan MD Verified: ??01/21/2019 ?Dermatopathol ogist Performed at: ??-[facility], [place], [place] ?Surgical Pathology DIAGNOSIS Skin, superior to the tragus of the right ear shave biopsy: - ??Seborrheic keratosis, irritated and focally inflamed Electronically signed by: ??Raji Srinivasan MD Verified: ??01/19/2019 ?Dermatopathol ogist Performed at: ??-[facility], [place], [place] CLINICAL INFORMATION Specimen Submitted: A - Skin, superior to the tragus of the right ear, shave biopsy (1) Clinical History and Diagnosis: 58-year-old male with a 6 mm papule with overlying scale and no erythema with well- defined borders located superior to the tragus of the right ear. DDX: ISK versus SCCis SPECIMEN PROCESSING A - Labeled/Fixativ e: Patient demographics, formalin. Quantity/Size: ??Single, 1 x 0.8 cm. Tissue Description: Nowak-pink skin shave with a 0.8 x 0.7 x 0.3 cm pink bosselated lesion. Sections/Proces sing: Inked, trisected and entirely submitted in 1 cassette labeled A1. ??jmb 01/21/2019 12:43 PM EDT [facility] SPECIMEN FROM SKIN / Unknown 01/16/2019 9:26 AM EDT 01/16/2019 9:26 AM EDT Christian Gillespie MD PATHOLOGY/CYTOLOGY O HERMANN [facility] [place] [address] documented in this encounter Visit Diagnoses Diagnosis Neoplasm of uncertain behavior of skin Venous jin Hemangioma of skin and subcutaneous tissue Multiple benign nevi Benign neoplasm of skin, site unspecified documented in this encounter Care Teams Ui Engineer Relationship Specialty Start Date End Date Ansley Mir MD [address] [place] [address] PCP - General Family Medicine 11/02/18 documented as of this encounter
--- OUTSIDE RECORDS SUMMARY | 2024-06-20 13:58 | XMS_ITS | Encounter Summary ---
Author Organization [facility] Address [address] [place] [address] Care Team Providers Care Floor Covering Printer Assistant Name Role Phone Kelsi Toscano MD Primary Care Provide r Unavailable Encounter Details Date Type Department Care Team (Late st Contact Info) Description 04/05/2017 Results Only [facility] [phone] Rashaad Mooney PA-C [address] [place] [address] Social History Tobacco Use Types Packs/Day Years [...] Procedure Name Priority Date/Time Associated Diagnosis Comments SURGICAL PATHOLOGY Routine 04/05/2017 16 :23 EDT documented in this encounter Results * SURGICAL PATHOLOGY (04/05/2017 16:23 EDT) Pathology Report: SURGICAL PATHOLOGY REPORT Reports generated via electronic interface contain original data; however they are lacking the format of the original report. Caution should be taken when reading/interpret ing unformatted reports. Name: ? UJLITO GOODE ? Accession #: ? [id number] ? : ? 1960 (Age: 56) ??M ? Collect Date: ? 04/05/2017 ? Location: ? [facility] ? Receive Date: ? 04/06/2017 ? Provider: RASHAAD MOONEY PAC Copy to: ? Final Pathologic Diagnosis: SKIN OF SHOULDER, LEFT POSTERIOR, EXCISIONAL BIOPSY: - Melanocytic nevus, compound type, with unusual architectural features and mild cytologic atypia. - Margins of excision negative. Document reviewed and electronically signed by: RONI HINOJOSA MD Report ??Date: 04/07/2017 15:17 By the signature above, the attending physician certifies that he/she has personally conducted a gross and/or microscopic examination of the described specimens and rendered or confirmed the above diagnosis. Specimen(s) Received: Excision bx L posterior shoulder Clinical History: 5.0 mm flat multicolored nevus, slightly irregular borders Gross Description: ? Received in formalin labelled with proper patient identification (initials S, C) and L shoulder lesion is a shave biopsy of abdalla-pink wrinkled skin (1.1 x 0.5 x 0.3 cm) with an ill-defined abdalla-brown macule (0.4 x 0.4 x 0.1 cm) that approaches the peripheral edge. The specimen is inked, bisected, and submitted in 1. DEJUAN Barry (ASCP) 04/07/2017 8:04 AM End of Report [facility] 04/05/2017 16:2 3 EDT 04/06/2017 16:23 EDT us Rashaad Mooney PA-C PATHOLOGY ORDERABLES Izabela herrera Result [facility] [address] [place] [address] documented in this encounter Visit Diagnoses Not on filedocumented in this encounter Care Teams Floor Covering Printer Assistant Relationship Specialty Start Date End Date Kelsi Toscano MD PCP - General 04/06/17 documented as of this encounter
--- OUTSIDE RECORDS SUMMARY | 2024-06-20 13:58 | XMS_ITS | Encounter Summary ---
Author Organization [facility] Address [facility] [place] [address] Care Team Providers Care Property Field Inspector Name Role Phone Ansley Mir MD Primary Care Provider [phone] Encounter Details Date Type Department Care Team (Latest Contact Info) Description 01/27/2022 9:38 AM EDT - 01/27/2022 11:59 PM EDT Hospital [place] [id number] Discharge Disposition: Home Social History Tobacco Use Types Packs/Day Years Used Date Smoking Tobacco: Never Smokeless Tobacco: Never Sex and Gender Information Value Date Recorded Sex Assigned at Not on file Gender Identity Not on file Sexual Orientation Not on file documented as of this encounter Medications at Time of Discharge Medication Sig Dispensed Refills Start Date End Date omeprazole (PRILOSEC) 20 mg Capsule, Delayed Release(E.C.) Take 20 mg by mouth daily. multivitamin Capsule Take 1 capsule by mouth daily. gabapentin (NEURONTIN) 300 mg Capsule Take 300 mg by mouth nightly. cephALEXin (KEFLEX) 500 mg Capsule Take 500 mg by mouth 4 times daily. documented as of this encounter Plan of Treatment Not on file documented as of this encounter Procedures Procedure Name Priority Date/Time Associated Diagnosis Comments SURGICAL PATHOLOGY REPORT Routine 01/27/2022 5:00 PM EDT documented in this encounter Results * Surgical Pathology Report (01/27/2022 5:00 PM EDT) Final Diagnosis [id number] ? Location: [facility] The signing pathologist has (i) examined the relevant preparation(s) for the specimen(s) and (ii) rendered or confirmed the diagnosis(es). . 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 of Pathology, [place], [place] ADDITIONAL STUDIES Immunohistochemistry Studies: Formalin-fixed, paraffin-embedded tissue sections are studied using the polymer technique with appropriate positive and negative controls. ?These IHC studies provide the pathologist with adjunctive diagnostic information. Antibody specificity has been verified by testing antibodies on a series of in-house tissues with known immunohistochemical performance characteristics. The clinical interpretation of any antibody positive staining or its absence is evaluated within the context of clinical presentation, morphology, histopathological criteria and other diagnostic tests. Block ? Antibody ? Result (Positive/Negative) A2 ? Melan-A red ?Highlights ?? melanocytes A2 ? PRAME red ?Negative SPECIMEN(S) SUBMITTED A - Right trunk, excision (1) CLINICAL INFORMATION Nevus right flank SPECIMEN PROCESSING A - Labeled/Fixative: Right side flank, formalin. Quantity/Size: ??Single, 0.9 x 0.5 x 0.4 cm. Tissue Description: Elliptical excision of white skin with a 0.4 x 0.3 cm dark brown macule at one pole Sections/Processing: Inked and entirely submitted in 2 cassettes as follows: ?A1: ??tips ?A2: ??body ??sns 02/03/2022 4:08 PM EDT [facility] SPECIMEN FROM SKIN / Unknown 01/27/2022 5:00 PM EDT 01/27/2022 5:00 PM EDT Julito Yost MD PATHOLOGY/TONO GRACE ORDERABLES [facility] [place] [address] documented in this encounter Visit Diagnoses Not on filedocumented in this encounter Care Teams Property Field Inspector Relationship Specialty Start Date End Date Ansley Mir MD [address] [place] [address] PCP - General Family Medicine 11/02/18 documented as of this encounter
--- OUTSIDE RECORDS SUMMARY | 2024-06-20 13:58 | XMS_ITS | Encounter Summary ---
[place] [address] Care Team Providers Care Numerical Control Machine Machinist Name Role Phone Ansley Mir MD Primary Care Provider [phone] Reason for Referral * Diagnostic Test (Routine) - Closed Specialty Diagnoses / Procedures Referred By Contac t Referred To Contact Radiology Diagnoses Spontaneous rupture of extensor tendon of left foot Procedures MRI Foot wo Contrast Left Garrison Melo DPM [address] [place] [address] [place] [address] Referral ID Status Reason Start Date Expiration Date V isits Requested Visits Authorized [id number] Closed Specialty Service Requested 11/02/2018 11/02/2019 1 1 Reason for Visit * Diagnostic Test (Routine) - Closed Specialty Diagnoses / Procedures Referred By Contac antionette Referred To Contact Radiology Diagnoses Spontaneous rupture of extensor tendon of left foot Procedures MRI Foot wo Contrast Left Garrison Melo DPM [address] [place] [address] [place] [address] Referral ID Status Reason Start Date Expiration Date V isits Requested Visits Authorized [id number] Closed Specialty Service Requested 11/02/2018 11/02/2019 1 1 Encounter Details Date Type Department Care Team (Latest Contact Info) Description 11/06/2018 10:20 AM EDT - 11/06/2018 11:59 PM EDT Hospital [place] [address] Garrison Melo S, DPM Spontaneous rupture of extensor tendon of left foot Discharge Disposition: Home Social History Tobacco Use Types Packs/Day Years Used Date Smoking Tobacco: Never Assessed Sex and Gender Information Value Date Recorded Sex Assigned at Not on file Gender Identity Not on file Sexual Orientation Not on file documented as of this encounter Plan of Treatment Not on file documented as of this encounter Procedures Procedure Name Priority Date/Time Associated Diagnosis Comments MRI FOOT WO CONTRAST LEFT Routine 11/06/2018 11:28 AM EDT Spontaneous rupture of extensor tendon of left foot documented in this encounter Results * MRI Foot wo Contrast Left (11/06/2018 11:28 AM EDT) Anatomical Region Laterality Modality Foot Left Magnetic Resonan ce Addenda Addendum by Lindsay Duran MD on 11/21/2018 12:23 PM EDT --------ADDENDUM #1-------- The report is revised to reflect the correction of typographic error(s). The correction is indicated by. TECHNIQUE: Noncontrast MRI of the *Left* mid foot was performed Thank you for letting us participate in the care of this patient. For questions regarding this report, please contact the number below. ? Electronically signed by: Lindsay Duran [facility] ([phone]), at 11/21/2018 12:18 PM --------ORIGINAL REPORT -------- EXAMINATION: MRI FOOT WO CONTRAST LEFT CLINICAL HISTORY: left foot EHL/EHB tendons, hallux lost dorni-flexion, clinically i feel the injury lies over the mid foot region, ?integrity of tendons, outside order in scanned docs; NO PA REQ ,entered by ordering service COMPARISON: None TECHNIQUE: Noncontrast MRI of the Right mid foot was performed. FINDINGS: BONES: No fractures seen. TENDONS: 1. ??Extensor hallucis longus tendon [EHL]-interrupted tendon with retracted tendon stump overlying the dorsal cortex of the 1 cuneiform bone, series 6 image 26. The distal tendon is normal appearance. The proximal end of the interrupted DH L is not included on this exam. Small amount of bright T2 signal is at the tendon defect. The distal tendon is normal morphology and appearance. Extensor hallucis brevis tendon [EHB]-the tendon is not interrupted and can be traced to its origin at the muscle [series 7 image 20]. 2. ??Posterior tibial tendon-large, heterogeneous and bulbous tendon at insertion may represent insertional tendinopathy. There is minimal peritendinous bright T2 signal or edema. 3. ??Remaining tendons-not interrupted. LIGAMENTS: Normal Lisfranc ligament. TARSAL TUNNEL: No mass lesion JOINTS: Lisfranc joint-normal alignment. Subchondral degenerative cysts at 4 and 5 tarsometatarsal joints with osteophyte formation. MTP joints- 1. ??No large effusion. 2. ??1 MTP joint-osteophyte arthropathy with eccentric joint space narrowing,, cartilage thinning and osteophyte formation. 3. ??5 MTP joint-osteophyte formation. MUSCLES: Minimal fatty infiltration of the interosseous muscles. PLANTAR FASCIA: Diffusely thickened central band measuring 8 mm in thickness suggests plantar fasciitis, likely chronic nature as there is absence of surrounding soft tissue edema. Impression 1. ??Interrupted EHL with retracted bulbous distal tendon stump at 1 cuneiform. The proximal end of the torn tendon is not seen on this foot examination. 2. ??EHB is not interrupted. 3. ??Posterior tibial insertional tendinopathy. 4. ??Chronic plantar fasciitis represented by a thickened fascia. Thank you for letting us participate in the care of this patient. For questions regarding this report, please contact the number below. ? Narrative 11/06/2018 2:14 PM EDT EXAMINATION: MRI FOOT WO CONTRAST LEFT CLINICAL HISTORY: left foot EHL/EHB tendons, hallux lost dorni-flexion, clinically i feel the injury lies over the mid foot region, ?integrity of tendons, outside order in scanned docs; NO PA REQ ,entered by ordering service COMPARISON: None TECHNIQUE: Noncontrast MRI of the Right mid foot was performed. FINDINGS: BONES: No fractures seen. TENDONS: 1. ??Extensor hallucis longus tendon [EHL]-interrupted tendon with retracted tendon stump overlying the dorsal cortex of the 1 cuneiform bone, series 6 image 26. The distal tendon is normal appearance. The proximal end of the interrupted DH L is not included on this exam. Small amount of bright T2 signal is at the tendon defect. The distal tendon is normal morphology and appearance. Extensor hallucis brevis tendon [EHB]-the tendon is not interrupted and can be traced to its origin at the muscle [series 7 image 20]. 2. ??Posterior tibial tendon-large, heterogeneous and bulbous tendon at insertion may represent insertional tendinopathy. There is minimal peritendinous bright T2 signal or edema. 3. ??Remaining tendons-not interrupted. LIGAMENTS: Normal Lisfranc ligament. TARSAL TUNNEL: No mass lesion JOINTS: Lisfranc joint-normal alignment. Subchondral degenerative cysts at 4 and 5 tarsometatarsal joints with osteophyte formation. MTP joints- 1. ??No large effusion. 2. ??1 MTP joint-osteophyte arthropathy with eccentric joint space narrowing,, cartilage thinning and osteophyte formation. 3. ??5 MTP joint-osteophyte formation. MUSCLES: Minimal fatty infiltration of the interosseous muscles. PLANTAR FASCIA: Diffusely thickened central band measuring 8 mm in thickness suggests plantar fasciitis, likely chronic nature as there is absence of surrounding soft tissue edema. Impression 1. ??Interrupted EHL with retracted bulbous distal tendon stump at 1 cuneiform. The proximal end of the torn tendon is not seen on this foot examination. 2. ??EHB is not interrupted. 3. ??Posterior tibial insertional tendinopathy. 4. ??Chronic plantar fasciitis represented by a thickened fascia. Thank you for letting us participate in the care of this patient. For questions regarding this report, please contact the number below. ? Electronically signed by: LUCHO Saldana [facility] ([phone]), at 11/06/2018 2:14 PM Procedure Note Lindsay Duran MD - 11/06/2018 EXAMINATION: MRI FOOT WO CONTRAST LEFT CLINICAL HISTORY: left foot EHL/EHB tendons, hallux lost dorni-flexion, clinically i feel the injury lies over the mid foot region, ?integrityof tendons, outside order in scanned docs; NO PA REQ ,entered by orderingservice COMPARISON: None TECHNIQUE: Noncontrast MRI of the Right mid foot was performed. FINDINGS: BONES: No fractures seen. TENDONS: 1. Extensor hallucis longus tendon [EHL]-interrupted tendon withretracted tendon stump overlying the dorsal cortex of the 1 cuneiform bone, series 6image 26. The distal tendon is normal appearance. The proximal end of theinterrupted DH L is not included on this exam. Small amount of bright T2 signal is atthe tendon defect. The distal tendon is normal morphology and appearance.Extensor hallucis brevis tendon [EHB]-the tendon is not interrupted and can betraced to its origin at the muscle [series 7 image 20]. 2. Posterior tibial tendon-large, heterogeneous and bulbous tendon atinsertion may represent insertional tendinopathy. There is minimal peritendinousbright T2 signal or edema. 3. Remaining tendons-not interrupted. LIGAMENTS: Normal Lisfranc ligament. TARSAL TUNNEL: No mass lesion JOINTS: Lisfranc joint-normal alignment. Subchondral degenerative cysts at 4 and5 tarsometatarsal joints with osteophyte formation. MTP joints- 1. No large effusion. 2. 1 MTP joint-osteophyte arthropathy with eccentric joint spacenarrowing,, cartilage thinning and osteophyte formation. 3. 5 MTP joint-osteophyte formation. MUSCLES: Minimal fatty infiltration of the interosseous muscles. PLANTAR FASCIA: Diffusely thickened central band measuring 8 mm in thickness suggestsplantar fasciitis, likely chronic nature as there is absence of surrounding softtissue edema. Impression 1. Interrupted EHL with retracted bulbous distal tendon stump at 1cuneiform. The proximal end of the torn tendon is not seen on this footexamination. 2. EHB is not interrupted. 3. Posterior tibial insertional tendinopathy. 4. Chronic plantar fasciitis represented by a thickened fascia. Thank you for letting us participate in the care of this patient. Forquestions regarding this report, please contact the number below. Electronically signed by: Lindsay Duran [facility]([phone]), at 11/06/2018 2:14 PM Garrison Melo DPM IMG MRI ORDERABLES documented in this encounter Visit Diagnoses Diagnosis Spontaneous rupture of extensor tendon of left foot documented in this encounter Care Teams Numerical Control Machine Machinist Relationship Specialty Start Date End Date Ansley Mir MD [address] [place] [address] PCP - General Family Medicine 11/02/18 documented as of this encounter
--- OUTSIDE RECORDS SUMMARY | 2024-06-20 13:58 | XMS_ITS | Referral Summary ---
Author Organization [facility] Address [address] [place] [address] Care Team Providers Care Decorator Mannequin Name Role Phone Kelsi Toscano MD Primary Care Provide r Unavailable Immunizations Name Administration Dates Next Due INV: Covid-19 Vaccine [id number] 2 Injection (IRB#[id number]) 0.5 ml IM 05/14/2020,04/16/2020 Social History Tobacco [...] Orientation Not on file Plan of Treatment Not on file Insurance [employer] Care Teams Decorator Mannequin Relationship Specialty Start Date End Date Kelsi Toscano MD PCP - General 04/06/17
--- OUTSIDE RECORDS SUMMARY | 2024-06-20 13:58 | XMS_ITS | Encounter Summary ---
Author Organization [facility] Address [address] [place] [address] Care Team Providers Care Layaway Clerk Name Role Phone Unavailable Primary Care Provider Unavailabl e Encounter Details Date Type Department Care Team (Latest Contact Info) Description 04/05/2017 11:16 EDT - 04/05/2017 23:59 EDT Hospital Encounter [address] [address] Kelsi Toscano MD Discharge Disposition: Home or Self Care Social History Tobacco Use Types Packs/Day Years Used Date Smoking Tobacco: Never Assessed Sex and Gender Information Value Date Recorded Sex Assigned at Not on file Legal Sex Male 16:18 EDT Gender Identity Not on file Sexual Orientation Not on file documented as of this encounter Discharge Disposition Disposition Code Departure Means Destination Home or Self Detention documented in this encounter Plan of Treatment Not on file documented as of this encounter Visit Diagnoses Not on filedocumented in this encounter
--- OUTSIDE RECORDS SUMMARY | 2024-06-20 13:58 | XMS_ITS | Encounter Summary ---
Author Organization [facility] Address [address] [place] [address] Care Team Providers Care Surgical Physician Assistant Name Role Phone Kelsi Toscano MD Primary Care Provide r Unavailable Encounter Details Date Type Department Care Team (Late st Contact Info) Description 05/25/2023 Lab Requisition [facility] Pathology & Laboratory Medicine - [facility] [address] [place], [place] [address] Outr Resulting Lab, Provider Social History Tobacco [...] Associated Diagnosis Comments PSA TOTAL, DIAGNOSTIC Routine 05/25/2023 10:13 EST documented in this encounter Results * PSA TOTAL, DIAGNOSTIC (05/25/2023 10:13 EST) PSA 0.6 <=4.5 ng/mL 05/25/2023 21:46 EST [facility] Blood VENOUS BLOOD / Unknown 05/25/2023 10:13 EST 05/25/2023 21:25 EST Narrative [facility] - 05/25/2023 21:46 EST NOTE: Serum PSA concentration should not be interpreted as absolute evidence for the presence or absence of malignant disease. Assayed on Siemens [employer]OOK[employer] XPT using chemiluminescent technology.??Values obtained by using different assay methods cannot be used interchangeably. us Provider Outr Resulting Lab CHEMISTRY & BLOOD GA S ORDERABLES Final Result [facility] [address] [place] [id number] documented in this encounter Visit Diagnoses Not on filedocumented in this encounter Care Teams Surgical Physician Assistant Relationship Specialty Start Date End Date Kelsi Toscano MD PCP - General 04/06/17 documented as of this encounter
--- OUTSIDE RECORDS SUMMARY | 2024-06-20 13:58 | XMS_ITS | Encounter Summary ---
Author Organization [facility] Address [address] [place] [address] Care Team Providers Care Tie Puller Name Role Phone Kelsi Toscano MD Primary Care Provide r Unavailable Encounter Details Date Type Department Care Team (Late st Contact Info) Description 08/30/2021 Lab Requisition [facility] Pathology & Laboratory Medicine - [facility] [address] [place] [address] Outr Resulting Lab, Provider Social History Tobacco [...] Comments ZZCOVID-19 TEST [facility] PCR Today 08/30/2021 10:55 EDT COVID-19 TESTING Routine 08/30/2021 10:5 5 EDT documented in this encounter Results * COVID-19 TEST [facility] PCR (08/30/2021 10:55 EDT) Swab 08/30/2021 10:5 5 EDT 08/30/2021 21:42 EDT us Provider Outr Resulting Lab MICROBIOLOGY - GENER AL ORDERABLES Final Result [facility] [address] [place] [address] * COVID-19 TESTING (08/30/2021 10:55 EDT) COVID-19 rt-PCR Result Negative Negative 08/31/2021 13:50 EDT [facility] Comment: This test has not [...] clinical observations, patient history, and epidemiological information. Testing was performed using the juve SARS-CoV-2 assay ([employer] on the Juve 6800 System Performing Lab Juve [address] [facility] Lab 08/31/2021 13:50 EDT [facility] Swab 08/30/2021 10:5 5 EDT 08/30/2021 21:42 EDT us Provider Outr Resulting Lab MICROBIOLOGY - GENER AL ORDERABLES Final Result [facility] [address] [place] [address] documented in this encounter Visit Diagnoses Not on filedocumented in this encounter Care Teams Tie Puller Relationship Specialty Start Date End Date Kelsi Toscano MD PCP - General 04/06/17 documented as of this encounter
--- OUTSIDE RECORDS SUMMARY | 2024-06-20 13:58 | XMS_ITS | Encounter Summary ---
[place] [address] Care Team Providers Care Events Administrative Assistant Name Role Phone Ansley Mir MD Primary Care Provider [phone] Reason for Referral * Diagnostic Test (Routine) - Closed Specialty Diagnoses / Procedures Referred By Contac t Referred To Contact Radiology Diagnoses Left foot pain Procedures MRI Ankle wo Contrast Left MRI Foot wo Contrast Left Garrison Melo DPM [address] [place] [address] [place] [address] Referral ID Status Reason Start Date Expiration Date V isits Requested Visits Authorized [id number] Closed Specialty Service Requested 11/12/2018 11/12/2019 1 1 Reason for Visit * Diagnostic Test (Routine) - Closed Specialty Diagnoses / Procedures Referred By Contac t Referred To Contact Radiology Diagnoses Left foot pain Procedures MRI Ankle wo Contrast Left MRI Foot wo Contrast Left Garrison Melo DPM [address] [place] [address] [place] [address] Referral ID Status Reason Start Date Expiration Date V isits Requested Visits Authorized [id number] Closed Specialty Service Requested 11/12/2018 11/12/2019 1 1 Encounter Details Date Type Department Care Team (Latest Contact Info) Description 11/20/2018 7:45 AM EDT - 11/20/2018 11:59 PM EDT [place] [address] Garrison Melo S, DPM Left foot pain Discharge Disposition: Home Social History Tobacco Use [...] Name Priority Date/Time Associated Diagnosis Comments MRI ANKLE LEFT WO CONTRAST Routine 11/20/2018 8:54 AM EDT Left foot pain documented in this encounter Results * MRI Ankle wo Contrast Left (11/20/2018 8:54 AM EDT) Anatomical Region Laterality Modality Ankle Left Magnetic Resonan ce Impressions 11/20/2018 9:17 AM EDT Full-thickness rupture of the EHL tendon, with retraction of the proximal stump to 2 cm craniad to the tibiotalar joint (series 6 image 6, series 7 image 22). The distal stump of the EHL tendon terminates dorsal to the medial cuneiform, immediately deep to the skin marker placed by the patient. The gap between the proximal sump and the distal stump measures approximately 6 cm. Thank you for letting us participate in the care of this patient. For questions regarding this report, please contact the number below. ? 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 TECHNIQUE: MRI of the left ankle was performed without intravenous contrast COMPARISON: Attention is also directed to the 11/06/2018 left foot MRI. FINDINGS: Prior to scanning, a skin marker was placed to denote the site of focal concern indicated by the patient, at the dorsum of foot at the level of the cuneiforms. Joint spaces: There is no joint effusion. Bones and articular cartilage: There is no fracture. Bony alignment is normal. There is osteoarthropathy at the fifth tarsometatarsal joint characterized by reactive subchondral marrow signal changes. Tendons and bursae: There is a full-thickness rupture of the extensor hallucis longus tendon, with retraction of the proximal stump to 2 cm craniad to the tibiotalar joint (series 6 image 6, series 7 image 22). The distal stump of the extensor hallucis longus tendon terminates dorsal to the medial cuneiform, immediately deep to the skin marker placed by the patient. The gap between the proximal sump and the distal stump measures approximately 6 cm. The anterior tibialis tendon and the visualized portion of the extensor digitorum longus tendon are within normal limits. There is abnormal peritendinous fluid surrounding the peroneus longus and peroneus brevis tendons compatible with tenosynovitis. There is also split tearing of the peroneus brevis tendon just distal to the lateral malleolus (for example, series 8 image 20). The flexor tendons and Achilles tendon are within normal limits. There is no abnormal bursal distension. Ligaments: There is mild thickening and intermediate signal within the calcaneofibular ligament, raising the question of a remote prior partial injury (series 8 image 14). The anterior inferior tibiofibular, posterior inferior tibiofibular, anterior talofibular, posterior talofibular, deltoid, and spring ligaments are within normal limits. Plantar fascia: There is thickening of the central and lateral cords of the plantar fascia, with the central cord being thickened to 0.6 cm in thickness, without associated signal abnormality, which could represent a sequela of chronic plantar fasciitis. There is normal fat signal in the sinus tarsi. 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 TECHNIQUE: MRI of the left ankle was performed without intravenous contrast COMPARISON: Attention is also directed to the 11/06/2018 left foot MRI. FINDINGS: Prior to scanning, a skin marker was placed to denote the site of focalconcern indicated by the patient, at the dorsum of foot at the level of thecuneiforms. Joint spaces: There is no joint effusion. Bones and articular cartilage: There is no fracture. Bony alignment isnormal. There is osteoarthropathy at the fifth tarsometatarsal joint characterizedby reactive subchondral marrow signal changes. Tendons and bursae: There is a full-thickness rupture of the extensorhallucis longus tendon, with retraction of the proximal stump to 2 cm craniad tothe tibiotalar joint (series 6 image 6, series 7 image 22). The distal stumpof the extensor hallucis longus tendon terminates dorsal to the medialcuneiform, immediately deep to the skin marker placed by the patient. The gap betweenthe proximal sump and the distal stump measures approximately 6 cm. The anterior tibialis tendon and the visualized portion of the extensor digitorum longus tendon are within normal limits. There is abnormal peritendinous fluid surrounding the peroneus longus and peroneus brevistendons compatible with tenosynovitis. There is also split tearing of theperoneus brevis tendon just distal to the lateral malleolus (for example, series 8image 20). The flexor tendons and Achilles tendon are within normal limits.There is no abnormal bursal distension. Ligaments: There is mild thickening and intermediate signal within the calcaneofibular ligament, raising the question of a remote prior partialinjury (series 8 image 14). The anterior inferior tibiofibular, posteriorinferior tibiofibular, anterior talofibular, posterior talofibular, deltoid, andspring ligaments are within normal limits. Plantar fascia: There is thickening of the central and lateral cords ofthe plantar fascia, with the central cord being thickened to 0.6 cm inthickness, without associated signal abnormality, which could represent a sequelaof chronic plantar fasciitis. There is normal fat signal in the sinus tarsi. IMPRESSION Full-thickness rupture of the EHL tendon, with retraction of the proximalstump to 2 cm craniad to the tibiotalar joint (series 6 image 6, series 7 image22). The distal stump of the EHL tendon terminates dorsal to the medialcuneiform, immediately deep to the skin marker placed by the patient. The gap betweenthe proximal sump and the distal stump measures approximately 6 cm. Thank you for letting us participate in the care of this patient. Forquestions regarding this report, please contact the number below. Electronically signed by: LUCHO Keith [facility] ([phone]),at 11/20/2018 9:17 AM Garrison Melo DPM IMG MRI ORDERABLES documented in this encounter Visit Diagnoses Diagnosis Left foot pain Pain in limb documented in this encounter Care Teams Events Administrative Assistant Relationship Specialty Start Date End Date Ansley Mir MD [address] [place] [address] PCP - General Family Medicine 11/02/18 documented as of this encounter
--- OUTSIDE RECORDS SUMMARY | 2024-06-20 13:58 | XMS_ITS | Encounter Summary ---
Author Organization [facility] Address [address] [place] [address] Care Team Providers Care Boiler Tube Blower Name Role Phone Kelsi Toscano MD Primary Care Provide r Unavailable Encounter Details Date Type Department Care Team (Late st Contact Info) Description 06/28/2019 Lab Requisition [facility] Pathology & Laboratory Medicine - [facility] [address] [place] [address] Ansley Mir MD [address] [place], [place] [address] Encounter for other general examination Social History Tobacco Use Types Packs/Day Years [...] Priority Date/Time Associated Diagnosis Comments SURGICAL PATHOLOGY Today 06/27/2019 14 :00 EST Encounter for other general examination documented in this encounter Results * SURGICAL PATHOLOGY (06/27/2019 14:00 EST) Final Diagnosis A. SKIN OF SHOULDER, LEFT SUPERIOR, SHAVE BIOPSY: - Subacute spongiotic dermatitis. See microscopic and comment. 07/01/2019 9:25 EST [facility] at 0925 Diagnosis Comment The findings are consistent with an eczematous process. There is no evidence of basal cell carcinoma. 07/01/2019 9:25 EST [facility] Microscopic Description Sections consist of a shave biopsy of skin. There is parakeratosis with entrapped serum crust overlying epidermis which shows hyperplasia and moderate spongiosis. Within the dermis is a dense mixed inflammatory infiltrate which includes lymphomononuclear cells and eosinophils. There is an exocytosis into the overlying epidermis. 07/01/2019 9:25 [facility] Clinical History 2-3 mm raised pink, slightly scaly lesion L superior shoulder ? basal cell CA 07/01/2019 9:25 [facility] Attestation By the signature below, the attending physician certifies that they have personally conducted a gross and/or microscopic examination of the described specimens and rendered or confirmed the above diagnosis. 07/01/2019 9:25 [facility] at 0925 Gross Description A. Received in formalin labelled with proper patient identification (initials S, C) and L shoulder is a 0.7 x 0.6 x 0.1 cm ovoid shave of firm abdalla-white, hair-bearing skin. The margin is inked. The specimen is bisected and entirely submitted in A1. Lisa Chet 06/28/2019 16:17 07/01/2019 9:25 [facility] Scanned Images 07/01/2019 9:25 [facility] Tissue TISSUE SPECIMEN FROM SKIN / Unknown 06/27/2019 14:00 EST 06/28/2019 15:36 EST us Ansley Mir MD PATHOLOGY ORDERABLES Final Resu lt [facility] [address] [place] [address] documented in this encounter Visit Diagnoses Diagnosis Encounter for other general examination documented in this encounter Care Teams Boiler Tube Blower Relationship Specialty Start Date End Date Kelsi Toscano MD PCP - General 04/06/17 documented as of this encounter
--- OUTSIDE RECORDS SUMMARY | 2024-06-20 13:58 | XMS_ITS | Encounter Summary ---
Author Organization [facility] [place] [address] Care Team Providers Care Concessionist Name Role Phone Ansley Mir MD Primary Care Provider [phone] Encounter Details Date Type Department Care Team (Latest Contact Info) Description 04/13/2020 3:18 PM EST - 04/13/2020 11:59 PM EST [place] [id number] Discharge Disposition: Home Social History Tobacco Use [...] Procedure Name Priority Date/Time Associated Diagnosis Comments COVID-19 PCR Routine 04/13/2020 12:06 PM EST documented in this encounter Results * COVID-19 PCR (04/13/2020 12:06 PM EST) SARS-CoV-2 RNA Not Detected Not Detected [facility] Comment: This result should be interpreted in combination with the clinical observations, patient history and epidemiological information. For testing of asymptomatic individuals, assay performance characteristics and clinical utility have not been evaluated. Testing for SARS-CoV-2 (Severe acute respiratory syndrome coronavirus 2, formerly known as 2019 novel coronavirus or 2019-nCoV) to aid in the diagnosis of COVID-19 is performed using the Aptima SARS Co-V-2 Assay on the [employer] System ([employer] as authorized by the FDA issued Emergency Use Authorization (EUA). This assay is intended for In-vitro Diagnostic (IVD) use with nasopharyngeal swabs collected from individuals meeting the CDC criteria for testing. The assay is performed based on the instructions for use and additional guidance provided by the FDA. Testing is performed in the Microbiology Laboratory within the Department of Pathology and Laboratory Medicine at [facility], certified under the Clinical Laboratory Improvement Amendments of 1988 (CLIA), 42 U.S.C. section 263a, to perform high-complexity tests. Assay performance has been verified according to clinical laboratory regulatory requirements. Test results are provided above. A result of Not Detected indicates that the viral RNA target is not present but does not preclude SARS-CoV-2 infection. False negative results may occur if a specimen is improperly collected, transported or handled; if amplification inhibitors are present; or if inadequate numbers of viral particles are present in the specimen. A result of Detected suggests a current or recent infection and the patient is presumed to be infected. Positive and negative predictive values for this test are highly dependent on disease prevalence. A result of Invalid indicates the inability to conclusively determine the presence or absence of SARS-CoV-2 RNA in the sample which can be due to a variety of factors. ??Collection of a new sample for repeat testing is recommended in the case of an invalid result. CDC COVID-19 criteria for testing on human specimens and clinical management guidance information are available at the CDC Coronavirus Disease 2019 (COVID-19) webpage under Information for Healthcare Professionals (https://www.cdc.gov/coronavirus/2019-ncov/hcp/index.html). SARS-CoV-2 RNA Source Nasal [facility] Specimen from nose (specimen) Other / Unknown 04/13/2020 12:06 PM EST 04/14/2020 12:25 AM EST Narrative Resulting Agency Comment Spec In Lab Radames Mendez EMAIL MANAGER MOLECULAR ORDERABLES [facility] [place] [address] documented in this encounter Visit Diagnoses Not on filedocumented in this encounter Care Teams Concessionist Relationship Specialty Start Date End Date Ansley Mir MD [address] [place] [address] PCP - General Family Medicine 11/02/18 documented as of this encounter
--- OUTSIDE RECORDS SUMMARY | 2024-06-20 13:58 | XMS_ITS | Encounter Summary ---
Author Organization [facility] [place] [address] Care Team Providers Care Record Changer Assembler Name Role Phone Ansley Mir MD Primary Care Provider [phone] Encounter Details Date Type Department Care Team (Latest Contact Info) Description 09/01/2021 9:51 PM EDT - 09/01/2021 11:59 PM EDT [place] [phone] Discharge Disposition: Home Social History Tobacco Use [...] Associated Diagnosis Comments SURGICAL PATHOLOGY REPORT Routine 09/01/2021 12:56 PM EDT documented in this encounter Results * Surgical Pathology Report (09/01/2021 12:56 PM EDT) Final Diagnosis [id number] ? Location: [facility] The signing pathologist has (i) examined the relevant preparation(s) for the specimen(s) and (ii) rendered or confirmed the diagnosis(es). . ?Surgical Pathology DIAGNOSIS A - Antrum, Biopsy: - ??Gastric antral gland mucosa with nonspecific reactive gastropathy. No H. pylori-like microorganism is seen. B - Distal Esophagus, Biopsy: - ??Squamocolumnar junctional mucosa (cardia type) with mild chronic inflammation. There is no evidence of intestinal metaplasia. C - Proximal Esophagus, Biopsy: - ??Esophageal squamous mucosa within normal limits. Electronically signed by: ?Senait Howard MD Verified: ??09/08/2021 12:49 ??Pathologist Performed at: ??-[facility] Dept. of Pathology, [place], [place] SPECIMEN(S) SUBMITTED A - 1 Antrum, Biopsy () B - 2 Distal Esophagus, Biopsy () C - 3 Proximal Esophagus, Biopsy () Referring Identifier: ?(not provided) Report to: Ansley Mir CLINICAL INFORMATION GERD. Possible short segment Steele's SPECIMEN PROCESSING A - Labeled/Fixative: Antrum, formalin. Quantity/Size: Two, 0.2 and 0.3 cm. Tissue Description: Soft, abdalla-pink tissues. Sections/Processi ng: Submitted en toto ??in 1 cassette labeled A1. B - Labeled/Fixative: Distal esophagus, formalin. Quantity/Size: Fragments, 0.1-0.2 cm. Tissue Description: Soft, wispy, abdalla-white tissues. Sections/Processi ng: Submitted en toto ??in 1 cassette labeled B1. C - Labeled/Fixative: Proximal esophagus, formalin. Quantity/Size: Single, 0.3 cm. Tissue Description: Soft, abdalla-white tissue. Sections/Processi ng: Submitted en toto ??in 1 cassette labeled C1. ??pps 09/08/2021 12:49 PM EDT [facility] GI Biopsy 09/01/2021 12:5 6 PM EDT 09/01/2021 12:56 PM EDT GI Biopsy 09/01/2021 12:5 6 PM EDT 09/01/2021 12:56 PM EDT GI Biopsy 09/01/2021 12:5 6 PM EDT 09/01/2021 12:56 PM EDT Julito Nolan DO PATHOLOGY/CYT OLOGY ORDERABLES Performing Organization Address City/State/[facility] [place] [address] documented in this encounter Visit Diagnoses Not on filedocumented in this encounter Care Teams Record Changer Assembler Relationship Specialty Start Date End Date Ansely Mir MD [address] [place] [address] PCP - General Family Medicine 11/02/18 documented as of this encounter
--- OUTSIDE RECORDS SUMMARY | 2024-06-20 13:58 | XMS_ITS | Encounter Summary ---
Author Organization [facility] Address [address] [place] [address] Care Team Providers Care Sales Manager Prearranged Funerals Name Role Phone Kelsi Toscano MD Primary Care Provide r Unavailable Encounter Details Date Type Department Care Team (Latest Contact Info) Description 04/01/2022 10:37 EDT - 04/01/2022 23:59 EDT Hospital Encounter [facility] Clinical Research Unit - [address] [address] Nurse 8, [facility] Discharge Disposition: Home or Self Care Social [...] Code Departure Means Destination Home or Self Care documented in this encounter Plan of Treatment Not on file documented as of this encounter Visit Diagnoses Not on filedocumented in this encounter Care Teams Sales Manager Prearranged Funerals Relationship Specialty Start Date End Date Kelsi Toscano MD PCP - General 04/06/17 documented as of this encounter
--- OUTSIDE RECORDS SUMMARY | 2024-06-20 13:58 | XMS_ITS | Encounter Summary ---
Author Organization [facility] Address [address] [place] [address] Care Team Providers Care Quality Improvement Manager Name Role Phone Kelsi Toscano MD Primary Care Provide r Unavailable Encounter Details Date Type Department Care Team (Late st Contact Info) Description 02/16/2023 Lab Requisition [facility] Pathology & Laboratory Medicine - [facility] [address] [place] [address] Outr Resulting Lab, Provider Social History Tobacco [...] Procedure Name Priority Date/Time Associated Diagnosis Comments LYME AB Routine 02/16/2023 14:41 EDT documented in this encounter Results * LYME AB (02/16/2023 14:41 EDT) Lyme Ab Negative Negative 02/17/2023 9:43 EDT [facility] Blood VENOUS BLOOD / Unknown 02/16/2023 14:41 EDT 02/16/2023 21:37 EDT us Provider Outr Resulting Lab IMMUNOLOGY AND SEROL OGY ORDERABLES Final Result [facility] [address] [place] [address] documented in this encounter Visit Diagnoses Not on filedocumented in this encounter Care Teams Quality Improvement Manager Relationship Specialty Start Date End Date Kelsi Toscano MD PCP - General 04/06/17 documented as of this encounter
[2024-06-20 15:49] LABS: ALT 31 U/L (16-63); AST 18 U/L (15-37); Albumin 4.1 g/dL (3.4-5.0); Alkaline Phosphatase 100 U/L (46-116); Anion Gap 7.2 mmol/L (3-11); BUN 19 mg/dL (7-18); Bilirubin, Total 0.48 mg/dL (0.2-1.0); CO2 27.8 mmol/L (21.0-32.0); CREATININE 1.1 mg/dL (0.70-1.30); Calcium 8.8 mg/dL (8.5-10.1); Chloride 104 mmol/L (98-107); Estimated GFR 75.43 (mL/min/1.73m2); Glucose 92 mg/dL (74-106); Potassium 4.5 mmol/L (3.5-5.1); Sodium 139 mmol/L (136-145); TSH 1.72 uIU/mL (0.36-3.74); Total Protein 6.9 g/dL (6.4-8.2)
[2024-06-20 16:34] LABS: Hemoglobin A1C 5.8 % (<5.7)
[2024-06-21 00:04] LABS: PSA, Screening 0.9 ng/mL (<=4.5)
== END 2024-06-20 13:44 | disposition home or self-care (01) ==
LOC: NCHCN 13:43
PROVIDERS: PCP Family Medicine; Visit Provider Family Medicine
DX: Z00.00 Encounter for general adult medical examination without abnormal findings (principal); Z12.5 Encounter for screening for malignant neoplasm of prostate
CPT/HCPCS: 80053; 84153; 83036; 84443

== ENCOUNTER 2025-03-14 17:28 | Emergency (ER) | payer BC, SELFPAY ==
[2025-03-14 17:34] VITALS: BP 128/82; PULSE 70; RESP 16; TEMP 36.6; O2SAT 98
--- NOTE | 2025-03-14 17:45 | W.ED.GENAD ---
Discharge Plan Disposition Patient Disposition: Home Condition: Good Discharge Details Clinical Impression: Puncture wound Primary Care Provider: Ansley Mir V ED Provider: Laurie Way Home Meds and New Rx's Prescriptions: New cephalexin 500 mg capsule 500 mg PO QID 3 Days Qty: 12 0RF cephalexin 500 mg capsule 500 mg PO QID 3 Days Qty: 12 0RF No Action epinephrine 0.3 mg/0.3 mL auto-injector 0.3 mg IM ONCE Rx Instructions: as a single dose; may repeat once esomeprazole magnesium [Nexium 24HR] 20 mg capsule,delayed release(DR/EC) 20 mg PO DAILY melatonin 10 mg capsule 10 mg PO HS PRN Multiple Vitamin-Minerals Tablet 1 tab PO DAILY rosuvastatin 20 mg tablet 20 mg PO DAILY turmeric 400 mg Capsule 400 mg PO DAILY Discharge Instructions Additional Instructions: Please follow-up with your primary care provider on Monday or Monday for reassessment if you have any concerns. You are being prescribed prophylactic antibiotics. Please take the full course as prescribed. Recommend washing wound daily with antibacterial soap and water. You may apply a thin layer bacitracin or triple antibiotic ointment. Cover with a clean, dry dressing. For discomfort, I recommend he use ibuprofen 800 mg every 8 hours or Tylenol 650 mg every 6 hours. Elevate your foot above heart level to help decrease swelling. I recommend that you rest your foot as much as possible while you are healing. Return to emergency care if you notice any signs of infection such as fever/chills, general malaise, worsening swelling/pain, pus drainage, redness/streaking, or if you are were very worried and need to be rechecked again immediately Referrals: Ansley Mir MD [Primary Care Provider, Medicine] HPI General Date/Time Provider Initiated Documentation: 03/14/25 17:33. HPI Narrative: Julito is a 64-year-old male who presents to the emergency department today for evaluation of metal wire in left foot. He reports that he got hit with a metal wire that flung up from the ground while mowing, causing a puncture wound to the medial aspect of his foot. They cut off the sock and applied dressing immediately after incident. He did not remove the wire due to concerns about bone involvement and bleeding. He is reports some numbness to the toes, painless range of motion to ankle. No other injuries reported. Denies history of heart or lung conditions, diabetes, peripheral vascular disease, bleeding disorders, or liver problems. Unsure of last tetanus. Denies recent ABX use or allergies. PMH: HLD PAST SURGICAL HISTORY: Repaired torn extensor hallucis longus tendon in 2020. Related Data Home Medications ?Medication ?Instructions ?Recorded ?Confirmed multivitamin with minerals 1 tab PO DAILY 11/11/18 03/14/25 (Multiple Vitamin-Minerals tablet) rosuvastatin 20 mg tablet 20 mg PO DAILY 06/07/21 03/14/25 turmeric 400 mg capsule 400 mg PO DAILY 06/07/21 03/14/25 epinephrine 0.3 mg/0.3 mL 0.3 mg IM ONCE 11/08/23 03/14/25 injection, auto-injector esomeprazole magnesium 20 mg 20 mg PO DAILY 11/08/23 03/14/25 capsule,delayed release (Nexium 24HR) melatonin 10 mg capsule 10 mg PO HS PRN 11/29/23 03/14/25 cephalexin 500 mg capsule 500 mg PO QID 3 days #12 caps 03/14/25 cephalexin 500 mg capsule 500 mg PO QID 3 days #12 caps 03/14/25 Previous Rx's ?Medication ?Instructions ?Recorded cephalexin 500 mg capsule 500 mg PO QID 3 days #12 caps 03/14/25 cephalexin 500 mg capsule 500 mg PO QID 3 days #12 caps 03/14/25 Allergies Allergy/AdvReac Type Severity Reaction Status Date / Time bee venom protein (honey bee) Allergy Severe Anaphylaxis Verified 03/14/25 17:37 hogue Allergy Severe Unknown Verified 03/14/25 17:37 Sulfa (Sulfonamide Allergy Hives Verified 03/14/25 17:37 Antibiotics) General Stated Complaint: Laceration MAURISIO: 3 Exam Narrative Exam Narrative: General Appearance: Normal. Patient alert and oriented, no acute distress Vital signs: Within normal limits. Extremities: Puncture wound on foot with embedded wire to the medial/lateral aspect of the left foot. No active bleeding at this time. Full painless range of motion to ankle. Distal pulses intact. No color change to extremity. Skin: Warm and dry, no rash. Psychiatric: Normal. Course Vital Signs Vital signs: Vital Signs Temperature 36.6 C 03/14/25 17:34 Pulse 70 03/14/25 17:34 Respiratory Rate 16 03/14/25 17:34 Blood Pressure 128/82 03/14/25 17:34 Pulse Oximetry 98 03/14/25 17:34 Temperature 36.6 C 03/14/25 17:34 Pulse 70 03/14/25 17:34 Respiratory Rate 16 03/14/25 17:34 Blood Pressure 128/82 03/14/25 17:34 Pulse Oximetry 98 03/14/25 17:34 Pain Level 8 03/14/25 17:34 Medical Decision Making Initial Assessment: 64-year-old male with foot injury from wire, significant bleeding, numbness in toes. No peripheral vascular disease or bleeding disorders. Puncture wound with retained foreign body. History and presentation not consistent with neurovascular compromise, significant vascular derangement, or bony involvement. No concern for ankle involvement. This did not go through the plantar aspect of his shoe. ED Course: - Ordered X-ray to assess injury extent/foreign body; repeat x-ray performed after foreign body removal (no retained foreign body or bony compromise) - Applied topical lidocaine and epinephrine gel for discomfort -800 mg ibuprofen given for discomfort - 5 cc 2% lidocaine with epi injected with good anesthetic effect. Foreign body removal performed by Dr. Rubio, attending physician. - Initiated prophylactic antibiotics with cephalexin Clinical Impression: - Puncture wound with retained foreign body Reviewed discharge instructions with patient and his , including prophylactic antibiotics and red flags indicating need for return to emergency care. He voices agreement with plan of care. Patient consented to the use of ANA Imaging Data Radiologic Study: Radiologist's impression: Exam(s) XR FOOT LT COMPLETE EXAM: XR FOOT LT COMPLETE CLINICAL HISTORY: evaluate FB. TECHNIQUE: 2D digital imaging was performed. COMPARISON: No exams were available for comparison FINDINGS: 3 views There is a wire foreign body imbedded in the medial aspect of the foot at the level the navicular tuberosity. The wire extends inward to the bone level but does not appear to be imbedded within the bone itself. There are no other radiopaque foreign bodies. Some degenerative changes are noted at the tarsometatarsal joints. No evidence of osteomyelitis. IMPRESSION: Foreign body wire in the medial aspect of the foot extending down to the level of the bone-navicular tuberosity. Please be aware that the navicular tuberosity is insertion site of the tibialis posterior tendon (posterior tibial tendon). PFSH All Active Problems (Updated 03/14/25 @ 19:25 by Laurie Crook) Puncture wound (Acute) Pain of right heel (Acute) Pain in right foot (Acute) Achilles tendon contracture, right (Acute) Achilles tendinitis of right lower extremity (Acute) Diarrhea (Acute) Fever (Acute) Diabetes mellitus screening (Acute) Hypercholesteremia (Acute) Screening PSA (prostate specific antigen) (Acute) Fatigue (Acute) Encounter for screening for other viral diseases (Acute) Medical History Insomnia Hx of vertigo Rupture of tendon of left foot region 2019 Hx of hyperlipidemia GERD (gastroesophageal reflux disease) Surgical History History of tonsillectomy History of hernia repair Social History Smoking/Tobacco Use Status: Never Smoking risk assessment performed?: Yes Alcohol Intake: current Alcohol Intake frequency: a few times a week Alcohol type: wine Drug use: Never Substance use type: does not use Housing: house Do you feel safe at home: Yes Do you feel safe in your relationship?: Yes
[2025-03-14] MEDS: Lidocaine/Epinephri/Tetracaine Topical Gel 3 ML TP (17:49)
[2025-03-14] MEDS: Ibuprofen 800 MG TAB PO (18:36)
--- NOTE | 2025-03-14 19:13 | W.ED.PROC ---
Date of service: 03/14/25 Time of Service: 19:13 Procedures Foreign Body Removal Site: left and lower extremity Description of foreign body: other (metal wiring) Sedation/Analgesia: none Technique: removal with forceps and incision made to facilitate removal Confirmed by:: direct visualization and radiograph Complications: bleeding (small amount ) Post-procedure exam: awake, alert Neurovascular: normal distal pulse and normal capillary fill
[2025-03-14] MEDS: Cephalexin 500 MG CAP PO (19:19)
--- NOTE | 2025-03-14 19:23 | DI.RAD_ITS ---
Exam(s) XR FOOT LT COMPLETE EXAM: XR FOOT LT COMPLETE CLINICAL HISTORY: FB removed, r/o retained pieces. TECHNIQUE: 2D digital imaging was performed of the left foot. Three images were obtained. AP, oblique and lateral views were obtained. COMPARISON: CR XR FOOT LT COMPLETE from 03/14/2025 FINDINGS: BONES: No acute fracture is present. No bony destructive lesion is seen. There is a small plantar calcaneal spur. There is an enthesophyte at the posterior calcaneus. JOINTS: No dislocation present. SOFT TISSUE: The previously seen metallic density in the medial left foot has been removed. There are no retained foreign body fragment seen. IMPRESSION: 1. No evidence of a retained radiopaque foreign body. 2. The preliminary [facility] report was reviewed. DATA REPOSITORY: RADIATION DOSE DELIVERED:
[2025-03-14] MEDS: Cephalexin 500 MG CAP, 4 CAPS/BTL PO (19:38)
[2025-03-14 19:45] VITALS: PULSE 60; RESP 18; O2SAT 99
--- NOTE | 2025-03-14 19:58 | DI.[facility]_ITS ---
PROCEDURE INFORMATION: Exam: XR Left Foot Exam date and time: 03/14/2025 7:19 PM Age: 64 years old Clinical indication: Other: Fb removed, R/O retained pieces TECHNIQUE: Imaging protocol: Radiologic exam of the left foot. Views: 3 or more views. COMPARISON: CR XR FOOT LT COMPLETE 03/14/2025 6:07 PM FINDINGS: Bones/joints: No acute fracture or dislocation. No suspicious bony lesions. Soft tissues: There has been interval removal of a metallic fragment from the medial aspect of the left foot. No unexpected foreign bodies remain. IMPRESSION: No radiopaque foreign bodies remain within the medial soft tissues of the left foot. Dictated and Authenticated by: Nannette Bo MD. Orderin Carl Sullivan MD
== END 2025-03-14 19:46 | disposition home or self-care (01) ==
LOC: ER 19:39
PROVIDERS: Emergency Provider Nurse Practitioner Family; PCP Family Medicine
DX: S91.342A Puncture wound with foreign body, left foot, initial encounter (principal); W45.8XXA Other foreign body or object entering through skin, initial encounter
CPT/HCPCS: 99283 ×2; 73630